=== PATIENT | female | born 2000 | race Caucasian/White ===

== ENCOUNTER → 2023-03-08 10:40 | Outpatient (BNVA) | payer OTHER, SELFPAY | PROVIDERS: PCP Family Medicine; Visit Provider Family Medicine | DX: R53.81 Other malaise (principal); R53.83 Other fatigue | CPT/HCPCS: 84439; 84443 ==

== ENCOUNTER → 2023-04-07 15:16 | Outpatient (BNVA) | payer OTHER, SELFPAY | PROVIDERS: PCP Family Medicine; Visit Provider Family Medicine | DX: Z01.419 Encounter for gynecological examination (general) (routine) without abnormal findings (principal) | CPT/HCPCS: 87624 ==

== ENCOUNTER → 2023-05-24 12:48 | Outpatient (BNVA) | payer OTHER, SELFPAY | PROVIDERS: PCP Family Medicine; Visit Provider Family Medicine | DX: R30.0 Dysuria (principal); E03.9 Hypothyroidism, unspecified; Z34.90 Encounter for supervision of normal pregnancy, unspecified, unspecified trimester; Z51.81 Encounter for therapeutic drug level monitoring | CPT/HCPCS: 80053; 81000; 81025; 84144; 84439; 84443; 84702; 85025; 86592; 86762; 86803; 86850; 86900; 87086; 87340; 87806 ==

== ENCOUNTER 2023-06-09 15:05 | Outpatient (CLI) | payer OTHER, SELFPAY ==
--- NOTE | 2023-06-09 15:15 | US_ITS ---
WS: [id number] EARLY OBSTETRICAL ULTRASOUND (<14 WEEKS). HISTORY: Dating US COMPARISON: None available. Single intrauterine gestational sac is identified. Cardiac activity at 171 BPM. [place]-rump length cecy sures 2.5 cm which corresponds to a gestation of 9w1d. Normal-appearing yolk sac and amnion demonstra mary. No subchorionic hemorrhage. No free fluid. Corpus luteal cyst LEFT ovary measures 1.1 x 1.3 x 1.5 cm. Both ovaries are identified and normal siz e. US/US OB <= 14 weeks fetus [id number] IMPRESSION: 1. Single intrauterine gestation of 9 weeks 1 day with an EDC of 01/11/2024. 2. Normal cardiac activity.
== END 2023-06-09 15:06 | disposition home or self-care (01) ==
PROVIDERS: PCP Family Medicine; Visit Provider Family Medicine
DX: Z34.00 Encounter for supervision of normal first pregnancy, unspecified trimester (principal)
CPT/HCPCS: 76801

== ENCOUNTER → 2023-06-21 15:28 | Outpatient (BNVA) | payer OTHER, SELFPAY | PROVIDERS: PCP Family Medicine; Visit Provider Family Medicine | DX: Z34.00 Encounter for supervision of normal first pregnancy, unspecified trimester (principal) | CPT/HCPCS: 80307; 87491; 87591; 87661 ==

== ENCOUNTER 2023-08-16 14:30 | Emergency (ER) | payer OTHER, SELFPAY ==
[2023-08-16 14:32] VITALS: BP 132/78; PULSE 99; RESP 16; TEMP 37; O2SAT 100; BMI 28.3
--- NOTE | 2023-08-16 14:50 | ED_ITS ---
HPI - Abdominal Pain General: Chief Complaint: Abdominal Pain Stated Complaint: low abd pain 19 weeks preg Time Seen by Provider: 08/16/23 14:35 Source: patient Mode of arrival: ambulatory History of Present Illness: 23-year-old female G1, P0 presents at approximately 19 weeks gestation. She has some lower abdominal cramping still little bit of green vaginal discharge. No vaginal bleeding mild dysuria. No complications of to this point. Onset (ago): hour(s) Pain Consistency: intermittent Location: Periumbilical Severity: mild Quality: cramping Radiation: none Exacerbating factors: nothing Relieving factors: nothing Associated Symptoms: Reports GI cramping and dysuria; Denies constipation, diarrhea, hematochezia, hematuria, loose stools, nausea and poor appetite Review of Systems GI: Reports: GI cramping; Denies: nausea, diarrhea, constipation or hematochezia : Reports: dysuria; Denies: hematuria PFSH ED PFSH: Medical History Migraine headache Surgical History Hx of tonsillectomy End of 6th grade - Adenoids too Family History Mother Family history of thyroid problem Social History Smoking and tobacco status: never smoked Alcohol intake: current Alcohol intake frequency: holidays/special occasions only Substance/Drug Use: never Current occupation: Works at [employer] Physical Exam Const: COMMON NORMALS: no acute distress GENERAL APPEARANCE: cooperative and comfortable ORIENTATION/CONSCIOUSNESS: Yes awake, Yes oriented to person, Yes oriented to place and Yes oriented to time HENMT: COMMON NORMALS: normocephalic, atraumatic and hearing grossly normal bilaterally HEAD & SCALP: normocephalic and atraumatic Resp: COMMON NORMALS: normal respiratory effort, No retractions, No use of accessory muscles and clear to auscultation bilaterally AUSCULTATION: clear to auscultation bilaterally Cardio: COMMON NORMALS: regular rate, regular rhythm and No murmurs present (Cardio) RATE: regular rate RHYTHM: regular rhythm GI: COMMON NORMALS: Soft to palpation and No hepatosplenomegaly present AUSCULTATION: Yes normoactive bowel sounds PALPATION: Yes Soft to palpation, No Tenderness to palpation present (GI), No Guarding due to palpation present (GI) and Yes No hepatosplenomegaly present Extremity: COMMON NORMALS: normal to inspection, capillary refill normal, no clubbing, cyanosis or edema, no calf tenderness and no pedal edema Neuro: SENSORIUM/ORIENTATION: Yes oriented to person, Yes oriented to place and Yes oriented to time Skin: COMMON NORMALS: no rashes or lesions noted GENERAL SKIN EXAM: no r ashes or lesions noted Course Vital Signs: Vital signs: Vital Signs Temperature 98.6 F 08/16/23 16:58 Pulse Rate 94 08/16/23 16:58 Respiratory Rate 16 08/16/23 16:58 Blood Pressure 111/73 08/16/23 16:58 Pulse Oximetry 99 08/16/23 16:58 Oxygen Delivery Me thod Room Air 08/16/23 15:07 MDM - Abdominal Pain Medical Decision Making heart tones topples positive. Pelvic exam was completed by IZABELA Cleaning. Wet prep showed yeast. Will discharge home with Diflucan follow-up with ELIGIBILITY EXAMINER Medical Records I reviewed the patient's medical records. Lab Data I reviewed the patient's lab results. 08/16/23 15:36 08/16/23 15:36 Labs/Radiology: Laboratory Results WBC 10.17 10^3/uL (3.29-11.43) 08/16/23 15:36 RBC 4.45 10^6/uL (3.85-5.65) 08/16/23 15:36 Hgb 13.80 g/dL (11.27-16.99) 08/16/23 15:36 Hct 38.7 % (36-47) 08/16/23 15:36 MCV 87.0 fl (85-98) 08/16/23 15:36 MCH 31.0 pg (27-33) 08/16/23 15:36 MCHC 35.7 g/dL (30-55) 08/16/23 15:36 RDW 13.3 % (12.1-15.1) 08/16/23 15:36 Plt Count 184 10^3/cmm (157-399) 08/16/23 15:36 MPV 9.8 fL (7.4-10.4) 08/16/23 15:36 Neut % (Auto) 71.9 % 08/16/23 15:36 Lymph % (Auto) 19.4 % 08/16/23 15:36 [place] % (Auto) 6.8 % 08/16/23 15:36 Eos % (Auto) 0.7 % 08/16/23 15:36 Baso % (Auto) 0.3 % 08/16/23 15:36 Neut # (Auto) 7.32 10^3/uL (1.8-7.7) 08/16/23 15:36 Lymph # (Auto) 2.0 10^3/uL (0.8-4.8) 08/16/23 15:36 [place] # (Auto) 0.7 10^3/uL (0.2-0.9) 08/16/23 15:36 Eos # (Auto) 0.1 10^3/uL (0.0-0.8) 08/16/23 15:36 Baso # (Auto) 0.0 10^3/uL (0.0-0.1) 08/16/23 15:36 Nucleated RBC % (auto) 0 % 08/16/23 15:36 Nucleated RBCs # 0.0 /100WBC 08/16/23 15:36 Sodium 136 mmol/L (136-145) 08/16/23 15:36 Potassium 3.5 mmol/L (3.5-5.1) 08/16/23 15:36 Chloride 103 mmol/L (98-107) 08/16/23 15:36 Carbon Dioxide 22 mmol/L (22-29) 08/16/23 15:36 Anion Gap 14.5 (5-19) 08/16/23 15:36 BUN 5 mg/dL (6-20) L 08/16/23 15:36 Creatinine 0.2 mg/dL (0.5-0.9) L 08/16/23 15:36 GFR Calculation 444.2 mL/min (90-130) H 08/16/23 15:36 Glucose 90 mg/dL (65-115) 08/16/23 15:36 Calculated Osmolality 279 mOsm/kg (285-295) L 08/16/23 15:36 Calcium 8.9 mg/dL (8.5-10.5) 08/16/23 15:36 Urine Color Light yellow (Yellow) 08/16/23 15:06 Urine Appearance Clear (CLEAR) 08/16/23 15:06 Urine pH 8 (5-7) H 08/16/23 15:06 Ur Specific Spray 1.015 (1.005-1.030) 08/16/23 15:06 Urine Protein Neg (Negative) 08/16/23 15:06 Urine Glucose (UA) Norm (Normal) 08/16/23 15:06 Urine Ketones Negative (Negative) 08/16/23 15:06 Urine Blood Neg (Negative) 08/16/23 15:06 Urine Nitrate Negative (Negative) 08/16/23 15:06 Urine Bilirubin Neg (Negative) 08/16/23 15:06 Prot Sulfosalicylic Acd Negative (Negative) 08/16/23 15:06 Urine Urobilinogen Norm mg/dL (Negative) 08/16/23 15:06 Ur Leukocyte Esterase Negative (Negative) 08/16/23 15:06 C.trachomatis RNA (TMA) Cancelled 08/16/23 15:16 C.trachomatis RNA (TMA) Not detected (NOT DETECTED) 08/16/23 15:16 Chlamydia/GC Comment Cancelled 08/16/23 15:16 Chlamydia/GC Comment See note 08/16/23 15:16 N.gonorrhoeae RNA (TMA) Cancelled 08/16/23 15:16 N.gonorrhoeae RNA (TMA) Not detected (NOT DETECTED) 08/16/23 15:16 T. vaginalis Amp RNA Cancelled 08/16/23 15:16 T. vaginalis Amp RNA Not detected (NOT DETECTED) 08/16/23 15:16 No radiology studies performed this visit Discharge Plan Discharge Patient Disposition: Home Clinical Impression: Vaginal yeast infection, state, incidental Condition: Stable Prescriptions: New Diflucan 150 mg tablet 150 mg PO Q3D Qty: 2 0RF No Action Multivitamins 28 mg iron- 800 mcg Tablet 1 tab PO QAM Discharge Orders: Discharge ED (Routine); Ordered 08/16/23 Ordered By: Guillermo Zaldivar Referrals: Dusty Disla MD [Primary Care Provider] - Discharge Diet: Usual diet Discharge Activity: Increase activity as tolerated Patient Instructions: Opioid Safety, Pain Management Activity Restrictions/Additional Instructions: You were seen today for vaginal discharge and pelvic cramping. heart tones are normal and no pelvic exam there was signs of a yeast infection. You are given excretion per Diflucan 1 tablet immediately and 1 in 2 days. Follow- up with your primary OB doctor as previously scheduled. Coding Level of Care Code ED Assignment Desk Assistant for Jose Weiner
[2023-08-16 15:07] VITALS: BP 111/73; PULSE 94; RESP 16; O2SAT 99
[2023-08-16 15:48] LABS: Basophils % 0.3 %; Eosinophils # 0.1 10^3/uL (0.0-0.8); Eosinophils % 0.7 %; Hematocrit 38.7 % (36-47); Lymphocytes % 19.4 %; Mean Corpuscular HGB Conc 35.7 g/dL (30-55); Mean Platelet Volume 9.8 fL (7.4-10.4); Monocytes # 0.7 10^3/uL (0.2-0.9); Monocytes % 6.8 %; Neutrophils # 7.32 10^3/uL (1.8-7.7); Neutrophils % 71.9 %; Nucleated Red Blood Cells % 0 %; Platelet Count 184 10^3/cmm (157-399); Red Blood Count 4.45 10^6/uL (3.85-5.65); Red Cell Distribution Width 13.3 % (12.1-15.1); White Blood Count 10.17 10^3/uL (3.29-11.43)
[2023-08-16 16:00] LABS: Add Urine Microscopic? NO; Charge for UA Resulting for Rev
[2023-08-16 16:08] LABS: Anion Gap 14.5 (5-19); Blood Urea Nitrogen 5 mg/dL (6-20); Calcium 8.9 mg/dL (8.5-10.5); Carbon Dioxide 22 mmol/L (22-29); Chloride 103 mmol/L (98-107); Glomerular Filtration Rate 444.2 mL/min (90-130); Glucose 90 mg/dL (65-115); Osmolality Calculated 279 mOsm/kg (285-295); Potassium 3.5 mmol/L (3.5-5.1); Sodium 136 mmol/L (136-145)
[2023-08-16 16:38] LABS: Bilirubin Urine Neg (Negative); Blood Urine Neg (Negative); Glucose Urine UA Norm (Normal); Ketones Urine Negative (Negative); Leukocyte Esterase Urine Negative (Negative); Nitrate Urine Negative (Negative); Protein Urine Neg (Negative); Specific Gravity, Urine 1.015 (1.005-1.030); Sulfosalicylic Acid Urine Negative (Negative); Urine Appearance Clear (CLEAR); Urine Color Light yellow (Yellow); Urobilinogen Urine Norm (Negative); pH Urine 8 (5-7)
[2023-08-16 16:58] VITALS: BP 111/73; PULSE 94; RESP 16; TEMP 37; O2SAT 99
[2023-08-18 00:29] LABS: Chlamydia Trachomatis RNA TMA NOT DETECTED (NOT DETECTED); Neisseria Gonorrhoeae RNA, TMA NOT DETECTED (NOT DETECTED); Trichomonas Vaginalis RNA NOT DETECTED (NOT DETECTED)
== END 2023-08-16 16:59 | disposition home or self-care (01) ==
PROVIDERS: Emergency Provider Family Medicine; PCP Family Medicine
DX: O98.812 Other maternal infectious and parasitic diseases complicating pregnancy, second trimester (principal); B37.31 Acute candidiasis of vulva and vagina; Z3A.19 19 weeks gestation of pregnancy
CPT/HCPCS: 36415; 51701; 80048; 81003; 85025; 87210; 87491; 87591; 99283

== ENCOUNTER 2023-08-24 15:20 | Outpatient (CLI) | payer OTHER, SELFPAY ==
--- NOTE | 2023-08-24 15:15 | US_ITS ---
WS: [id number] OBSTETRICAL ULTRASOUND COMPLETE Initial study performed on 08/24/2023. Repeat imaging on 08/25/2023. HISTORY: Anatomy US - 9-10 weeks from now COMPARISON: 06/09/2023 Single intrauterine gestation in variable presentation. Cervix is Closed and normal length. Cervical length is 3.2 cm. Normal amount of amniotic fluid surrounds the fetus. Placenta: Anterior, no previa or abruption. Placenta grade 0 Heart: 138 BPM. Four chambers are identified. Outflow tracts are better seen on the second day imagin g exam. The outflow tracts appear appropriate. The valve plane is normal. Anatomy: Intracranial structures and spine are normal. kidneys, stomach and urinary bladd er are unremarkable. Abdominal wall, three-vessel cord and cord insertion site are normal. 4 extremities are present. profile: Unremarkable. Gender: Male. measurements: BPD = 4.7 cm = 20w2d; HC = 18.0 cm = 20w3d; AC = 15.9 cm = 21w0d; FL = 3.3 cm = 20w3d; EFW: 369 g. Not available. Biometry is internally concordant. AGA by ultrasound: 20w4d ESTEFANI by ultrasound: 01/07/2024 IMPRESSION: 1. Single intrauterine gestation of 20w4d with an ESTEFANI of 01/07/2024. Appropriate growth since the fi rst trimester ultrasound. 2. Unremarkable screening survey of anatomy. Better visualization of the heart on the fo llow-up imaging study. No anatomic abnormalities are identified.
== END 2023-08-24 15:21 | disposition home or self-care (01) ==
LOC: RAD 15:23
PROVIDERS: PCP Family Medicine; Visit Provider Family Medicine
DX: Z34.02 Encounter for supervision of normal first pregnancy, second trimester (principal)
CPT/HCPCS: 76805

== ENCOUNTER → 2023-09-20 10:34 | Outpatient (BNVA) | payer OTHER, SELFPAY | PROVIDERS: PCP Family Medicine; Visit Provider Family Medicine | DX: Z34.00 Encounter for supervision of normal first pregnancy, unspecified trimester (principal) | CPT/HCPCS: 82950 ==

== ENCOUNTER → 2023-11-15 16:34 | Outpatient (BNVA) | payer OTHER, SELFPAY | PROVIDERS: PCP Family Medicine; Visit Provider Family Medicine | DX: Z51.81 Encounter for therapeutic drug level monitoring (principal) | CPT/HCPCS: 85025 ==

== ENCOUNTER → 2023-12-13 16:09 | Outpatient (BNVA) | payer OTHER, SELFPAY | PROVIDERS: PCP Family Medicine; Visit Provider Family Medicine | DX: Z34.90 Encounter for supervision of normal pregnancy, unspecified, unspecified trimester (principal) | CPT/HCPCS: 87081 ==

== ENCOUNTER 2023-12-14 12:59 | Outpatient (CLI) | payer OTHER, SELFPAY ==
--- NOTE | 2023-12-14 13:15 | US_ITS ---
WS: [id number] ULTRASOUND OB FOCUSED HISTORY: head position - Next 1-2 days please COMPARISON: 08/24/2023 Single intrauterine gestation is present. Fetus in vertex position. Cervix is closed at 3.7 cm. heart rate at 131 BPM. Amniotic fluid index 8.3 cm. Placenta is anterior and grade 1. IMPRESSION: Vertex position of the fetus.
== END 2023-12-14 13:00 | disposition home or self-care (01) ==
LOC: RAD 13:00
PROVIDERS: PCP Family Medicine; Visit Provider Family Medicine
DX: O32.8XX0 Maternal care for other malpresentation of fetus, not applicable or unspecified (principal); Z3A.00 Weeks of gestation of pregnancy not specified
CPT/HCPCS: 76815

== ENCOUNTER 2024-01-12 04:17 | Inpatient (IN) | payer OTHER, SELFPAY ==
[2024-01-12] VITALS (126 sets, daily range): BP systolic 77–232; BP diastolic 35–172; PULSE 71–206; RESP 15–18; TEMP 30.6–36.6; O2SAT 85–100; BMI 29.9
[2024-01-12 04:03] LABS: Nitrazine Paper, PH Positive
[2024-01-12 05:26] LABS: Basophils % 0.3 %; Eosinophils # 0.1 10^3/uL (0.0-0.8); Eosinophils % 0.7 %; Hematocrit 44.5 % (36-47); Lymphocytes # 2.6 10^3/uL (0.8-4.8); Lymphocytes % 21.9 %; Mean Corpuscular HGB Conc 34.6 g/dL (30-55); Mean Corpuscular Hemoglobin 30.9 pg (27-33); Mean Corpuscular Volume 89.4 fl (85-98); Mean Platelet Volume 11.7 fL (7.4-10.4); Monocytes # 0.8 10^3/uL (0.2-0.9); Monocytes % 6.9 %; Neutrophils # 8.05 10^3/uL (1.8-7.7); Neutrophils % 69.1 %; Nucleated Red Blood Cells % 0 %; Platelet Count 154 10^3/cmm (157-399); Red Blood Count 4.98 10^6/uL (3.85-5.65); Red Cell Distribution Width 12.5 % (12.1-15.1); White Blood Count 11.67 10^3/uL (3.29-11.43)
[2024-01-12 06:32] LABS: Slide Review Slide Review Perform
[2024-01-12] MEDS: ondansetron 2 mg/ML SDV 2 mL 4 MG IVP ×3 (08:37→20:07)
[2024-01-12] MEDS: fentaNYL 50 mcg/mL INJ 2mL IVP ×2 (11:23→12:52)
[2024-01-12] MEDS: dextrose 5%-lactated ringers 1,000 ML 125 ML IV ×2 (12:22→23:36)
[2024-01-12] MEDS: oxytocin 30 UNIT/500 ML BAG IV (13:00)
[2024-01-12] MEDS: lactated ringers 1,000 ML 999 ML IV ×2 (15:19→16:24)
--- NOTE | 2024-01-12 16:14 | P.ANESUD_ITS ---
Pre-Anesthetic Update Pre-Anesthetic Assessment: Date of Surgery/Procedure: 01/12/24 Preop Roseanne gnosis: labor pain Proposed Procedure: epidural Any changes to Pre-Anesthetic Assessment?: No Labs Last 48hrs: Short CBC 01/12/24 Range/Units 05:16 WBC 11.67 H (3.29-11.43) 10^ 3/uL Hgb 15.40 (11.27-16.99) g/ dL Hct 44.5 (36-47) % MCV 89.4 (85-98) fl Plt Count 154 L (157-399) 10^3/c mm Neut % (Auto) 69.1 % Neut # (Auto) 8.05 H (1.8-7.7) 10^3/u L Blood Bank 01/12/24 05:16 Blood Type B Positive Rho(D) Type Rh positive Antibody Screen Negative Vitals: Temperature 97.2 F L 01/12/24 13:59 Pulse Rate 90 01/12/24 16:03 Pulse Rhythm Regular 01/12/24 04:19 Pulse Strength 3+ Normal 01/12/24 04:19 Respiratory Rate 16 01/12/24 12:52 Respiratory Effort Spontaneous, Non- Labored, Easy 01/12/24 12:52 Respiratory Depth Normal 01/12/24 12:52 Respiratory Patter n Normal 01/12/24 11:23 Blood Pressure 103/56 01/12/24 16:03 Pulse Oximetry 97 01/12/24 13:48 Oxygen Delivery Me thod Room Air 01/12/24 04:19 Exam: Pre-Anes Outpt Exam: alert, oriented x 3, clear to auscultation bilaterally and regular rate & rhythm Cardiac Studies: No Data to Display
[2024-01-12] MEDS: ROPivacaine syringe 100 MG/50 ML SYRINGE 11 MG EPIDURAL (16:33)
--- NOTE | 2024-01-12 16:41 | ANES.PROC ---
Anesthesia Procedures Procedure/Date: 01/12/24 epidural Procedure Narrative: epidural complete, bolus given, epidural pump initiated with ELECTRO MECHANICAL ENGINEER education given, vitals taken during procedure using OBIX system and satisfactory throughout, patient admits to decrease pain, report of procedure to OB RN Epidural: Time Out Performed: Yes Consents Signed: Procedure Consent Consent: requested by attending/covering physician, from patient, risks and benefits reviewed and patient agrees to proceed Lumbar Level: L3-L4 Epidural position: sitting Epidural procedure: sterile prep of area, 1% lidocaine to numb the area (3 mL), 18 g needle, negative for paresthesia passed, neg for paresthesia, test dose given, 1.5% xylocaine 1:200k epi (5 mL), 0.2% Ropivacaine bolus ml (5 mL), placed PCEA, no systemic response, sterile dressing applied, L.U.D. no apparent complications and 0.2% Ropiavacaine @ mls/hr (13 mL/hr)
--- NOTE | 2024-01-12 18:48 | P.HP_ITS ---
Providers/Chief Complaint 2 Admitting Physician: Dusty Disla MD Primary Care Provider: Dusty Disla MD Chief Complaint: Possible ROM History of Present Illness Time of service: 8:20 AM on 01/12/2024 Adrianne Hadley is a 23 year old @ 40.5 weeks by LMP c/w 9 wk US. complicated by migraines. The patient presented to labor and delivery triage due to spontaneous rupture membranes. The patient woke up approximately 3 AM and noticed a large gush of fluid when going to the bathroom. The fluid continued to come out and so she presented to triage. She was noted to be grossly ruptured and had a positive nitrazine test. The patient has been ramu more over the prior few days. The patient denies any fevers, chest pain, cough, nausea, vomiting, diarrhea, constipation, dysuria, vaginal bleeding. Medications/Allergies Home Medications Medication Instructions Recorded Confirmed Last Taken Type vit no.95-ferrous 1 tab PO QAM 08/16/23 01/12/24 08/16/23 History fumarate 28 mg-folic acid 800 mcg tablet ( Multivitamins) Allergies Allergy/AdvReac Type Severity Reaction Status Date / Time No Known Allergies Allergy Verified 08/16/23 14:44 PFSH Acute 2 PFSH: Medical History Migraine headache Surgical History Hx of tonsillectomy End of 6th grade - Adenoids too Family History Mother Family history of thyroid problem Social History Smoking and tobacco/nicotine status: never used tobacco/nicotine Alcohol intake: current Alcohol intake frequency: holidays/special occasions only Substance/Drug Use: never Current occupation: Works at [employer] Female Reproductive History: : 1 Vitals/I&O/Wt Last Vital Signs Temp 96.6 F L 01/12/24 17:15 Pulse 114 H 01/12/24 18:31 Resp 16 01/12/24 12:52 BP 97/57 01/12/24 18:31 Pulse Ox 100 01/12/24 16:50 O2 Del Method Room Air 01/12/24 04:19 01/12/24 01/12/24 01/12/24 06:59 14:59 22:59 Intake Total 2.0 / 2.0 1732.317 / 1734.317 Balance 2.0 / 2.0 1732.317 / 1734.317 Weight last 48 hrs Weight 148 lb Physical Exam 2 Narrative: General: Alert and oriented x3 Eyes: Pupils equal round and reactive to light and accommodation Mouth: Mucous membranes moist, pharynx non-erythematous Cardiac: Regular rate and rhythm without murmurs Lungs: Clear to auscultation bilaterally without wheezes, crackles or rhonchi Abdomen: Soft, non-tender, fundus consistent with gestational age Extremities: Trace edema in the bilateral lower extremities Urinary Catheter Management: Luu: Cath Placed During This Visit: yes Urinary Catheter Date of Insertion: 01/12/24 Urinary Catheter Time of Insertion: 17:05 Data 01/12/24 05:16 A&P Assessment and plan (1) Supervision of normal intrauterine in primigravida: The patient presented to labor and delivery triage and has had spontaneous rupture membranes. She is ramu every 2 minutes and we will allow her to see if this will change her cervix on its own. If her contractions spaced out, we will plan to add IV Pitocin. She may receive a laboring epidural when she gets to be 3 cm or beyond. She may have IV medications prior to this if she would prefer. The patient is GBS negative. heart tones are category 1. All questions were answered. Continue with routine intrapartum management. Attestations 2 Medical Necessity Statement*: The patient will be here for greater than 2 midnights due to routine intrapartum and management of labor and delivery. Coding Level of Care Code Acute Code for Chg Fwd Diagnoses Supervision of normal intrauterine in primigravida Z34.00
[2024-01-12] MEDS: ePHEDrine 50 mg/mL Inj 10 MG IVP ×2 (20:09→20:27)
[2024-01-12] MEDS: oxytocin 30 UNIT/500 ML BAG 300 UNIT IV (20:10)
[2024-01-12] MEDS: miSOPROStol 200 mcg Tablet 800 MCG PR (20:19)
--- NOTE | 2024-01-12 20:48 | ECG_ITS ---
[facility] Test Date: 2024-01-12 Pat Name: Adrianne Hadley Department: Room: OB4 Gender: Female Survey And Mapping Technician: : 2000 Requested By: Dusty Beltran Order Number: [id number] Alba MD: Aidee Yee M.D. Measurements Intervals [place] Rate: 103 P: 54 AR: 92 QRS: 104 QRSD: 88 T: 62 QT: 331 QTc: 435 Interpretive Statements SINUS TACHYCARDIA WITH SHORT AR INTERVAL RIGHT AXIS DEVIATION [QRS AXIS > 100] Nonspecific ST changes POSSIBLE RIGHT VENTRICULAR CONDUCTION DELAY [RSR (QR) IN V1/V2] No previous ECG available for comparison Electronically Signed On 01-13-2024 17:54:09 CNC PROGRAMMER by Aidee Yee M.D. [id number]
[2024-01-12 21:12] LABS: Glucose Point of Care 78 mg/dL (70-110)
[2024-01-12 21:17] LABS: Basophils % 0.2 %; Hematocrit 37.7 % (36-47); Lymphocytes % 3.9 %; Mean Corpuscular HGB Conc 33.7 g/dL (30-55); Mean Corpuscular Hemoglobin 30.8 pg (27-33); Mean Corpuscular Volume 91.5 fl (85-98); Mean Platelet Volume 10.9 fL (7.4-10.4); Monocytes # 1.1 10^3/uL (0.2-0.9); Monocytes % 4.3 %; Neutrophils # 22.36 10^3/uL (1.8-7.7); Neutrophils % 90.9 %; Nucleated Red Blood Cells % 0 %; Platelet Count 186 10^3/cmm (157-399); Red Blood Count 4.12 10^6/uL (3.85-5.65); Red Cell Distribution Width 12.4 % (12.1-15.1); White Blood Count 24.62 10^3/uL (3.29-11.43)
[2024-01-12 21:23] LABS: INR 1.07 (0.8-1.2)
[2024-01-12 21:24] LABS: Fibrinogen 353 mg/dL (174-498)
[2024-01-12 21:27] LABS: Alanine Aminotransferase 12 U/L (0-33); Albumin Level 2.8 g/dL (3.5-5.2); Alkaline Phosphatase 128 U/L (35-105); Anion Gap 12.8 (5-19); Aspartate Amino Transferase 15 U/L (0-32); Blood Urea Nitrogen 5 mg/dL (6-20); Carbon Dioxide 20 mmol/L (22-29); Chloride 106 mmol/L (98-107); Creatinine Clr Calc Pharmacy 233.7965; Globulin 1.8 g/dL (1.3-4.6); Glomerular Filtration Rate 199.6 mL/min (90-130); Glucose 86 mg/dL (65-115); Osmolality Calculated 277 mOsm/kg (285-295); Potassium 3.8 mmol/L (3.5-5.1); Sodium 135 mmol/L (136-145); Total Protein 4.6 g/dL (6.6-8.7)
[2024-01-12 21:33] LABS: D Dimer 12.85 ug/mLFEU (0-0.59)
--- NOTE | 2024-01-12 21:47 | PM.DELIVERY ---
Delivery Note: Date of delivery: January 12, 2024 Pre-delivery diagnoses: 1. Intrauterine at 40.5 weeks gestation 2. History of migraines 3. Spontaneous rupture membranes at 3 AM on 01/12/2024 Post-delivery diagnoses: 1. Intrauterine status post vacuum-assisted vaginal delivery at 40.5 weeks gestation 2. History of migraines 3. Prolonged hypotensive episode after delivery 4. Elevated D-dimer Procedure: Vacuum-assisted vaginal delivery Episiotomy Delivering Physician: Dusty Disla MD Estimated blood loss (mL): 400 Findings: 1. Healthy infant male weighing 6 pounds 12 ounces with Apgars of 4 and 8 2. Intact placenta with central umbilical cord insertion site Pre-Delivery Course: The patient presented to labor and delivery triage due to spontaneous rupture membranes. The patient woke up approximately 3 AM on 01/12/2024 and noticed a large gush of fluid when going to the bathroom. The fluid continued to come out and so she presented to triage. She was noted to be grossly ruptured and had a positive nitrazine test. The patient has been ramu more over the prior few days. The patient denied any fevers, chest pain, cough, nausea, vomiting, diarrhea, constipation, dysuria, vaginal bleeding. The patient was making good change on her own and got to approximately 2 cm dilation and her contractions started to space out. IV Pitocin was started at 2 units and she got up to 5 units and then was titrated back downward as her contractions picked up again. The patient made steady change. She received a laboring epidural at approximately 1440. She did well with this and had no complications afterwards. The epidural worked well for her and she had no hypotensive episodes afterwards. The patient continued to make steady change and was complete by 1822 on 01/12/2024. Delivery: The patient began pushing at 1854 on 01/12/2024. Shortly after she started pushing, heart tones dipped down and she had a prolonged deceleration in the 60's to 90's. This started to improve with stopping IV Pitocin and giving a fluid bolus with position changes, but then came back again. For this reason a vacuum was applied at 19:08 to help move the delivery on more quickly. With 3 pushes, the infant's head moved down from the +1 station to at which time the vacuum popped off. Since she was , the vacuum was not re-placed. The patient pushed well for a few more contractions, however she had tight vaginal tissue and was having a hard time pushing the through this. The 's heart tones began to stay in the 60s to 80s again and for this reason an episiotomy was done at 1922. Shortly afterwards the infant delivered in the OA position at 1925 on 01/12/2024. A nuchal cord x 1 was present but tight. It was not able to be reduced. For this reason the was delivered through the nuchal cord. The left shoulder was the anterior shoulder and it delivered with ease. The rest of the delivered with ease. The 's mouth and nose were bulb suctioned by myself and the infant had poor tone at the time of delivery. The 's cord was clamped and cut by myself and the was given to the nurses to evaluate more closely. Please see note for full details. Cord blood was obtained and the cord was then drained of blood. Traction was placed on umbilical cord and the placenta delivered without complication at 1928 on 01/12/2024. The placenta was noted to be intact with a central umbilical cord insertion site. The cervix was inspected and no lacerations were noted. The vaginal wall was inspected and a large second-degree tear was noted on the left posterior and posterolateral wall. The patient's epidural was giving adequate anesthesia, so 3-0 Vicryl was used to repair the laceration without need of lidocaine. This was repaired in a running fashion. The patient tolerated this well initially. A couple of minutes prior to me finishing suturing, the patient's blood pressure began to drop and she complained of a headache and weakness. She denied any chest pains or chest pressure. Her blood pressure was at 85/35 with a pulse of 127. For this reason the epidural was turned off and an IV fluid bolus was given and oxygen was placed. The patient's blood pressure continued to stay low and she was placed in Trendelenburg and a second IV line was placed. She was given a total of 2 L of LR bolused. Ephedrine was given x 2. Her bleeding was only mild to moderate, however because of her lower blood pressures, Cytotec 800mcg was given rectally at 2019 to help decrease her bleeding as much as possible. Labs were drawn and sent. We called down to the ICU to see if a bed was available and I called Dr. Delgado, the hospitalist at 8:44 PM to discuss the possibility of admission to the ICU to be placed on pressors. While I was on the phone with the physician, the patient's blood pressures began to improve and she began to become more alert. Because of this, her IV fluid bolus was decreased and oxygen was stopped. The patient currently has blood pressures in the 92/55 range with a pulse of 111 and oxygen of 98% on room air. She is afebrile. Labs are currently pending, however her D-dimer is elevated and she has signs of a right ventricular conduction delay on EKG. We will plan to get a CT for PE protocol to evaluate for pulmonary embolism. She currently does not meet criteria for an amniotic fluid embolus. Her symptoms do not seem to be consistent with blood loss as a cause either. Her estimated blood loss was 400 mL initially. I do not feel that this was due to her epidural as it had not caused issues previously and the dosing was not changed. The patient never complained of chest pains or chest tightness. She has been afebrile so this does not seem to be consistent with an infectious cause. We will continue to evaluate for possible underlying causes. I have discussed the case with the patient and her and they are currently in agreement with the current plan of care. The patient's was present throughout the entire process. Currently both the mother and are doing well. History History History 1 Term 1 0 Miscarriages/Ectopic 0 Living Children 1 Past Pregnancies Del. Date GA/Weeks Outcome Route Wt Inf Gender Labor Lgth Comp. Anesthesia Location 01/12/24 40 live - full term Opperative 6 lb 12 oz Male 16 hrs Other regional [facility] - [place] Delivery Date: 01/12/24 Last Updated by: Dusty Disla MD Hypotensive episode after delivery x 1 hr - Being evaluated A&P Assessment and plan (1) Vacuum-assisted vaginal delivery: (2) Hypotension: Coding Level of Care Code Acute Code for Chg Fwd Diagnoses Hypotension I95.9 Vacuum-assisted vaginal delivery Z37.9
--- NOTE | 2024-01-12 22:10 | CTR_ITS ---
PROCEDURE INFORMATION: Exam: CTA Chest With Contrast Exam date and time: 01/12/2024 10:40 PM Age: 23 years old Clinical indication: Tachypnea; Additional info: Hypotension after delivery, tachycardia, elevated d-dimer TECHNIQUE: Imaging protocol: Computed tomographic angiography of the chest with contrast. Exam focused on the arteries. 3D rendering (Not supervised by radiologist): MIP and/or 3D reconstructed images were created by the technologist. Radiation optimization: All CT scans at this facility use at least one of these dose optimization techniques: automated exposure control; mA and/or kV adjustment per patient size (includes targeted exams where dose is matched to clinical indication); or iterative reconstruction. Contrast material: OMNI 350; Contrast volume: 80 ml; Contrast route: INTRAVENOUS (IV); COMPARISON: No relevant prior studies available. RADIATION DOSE METRICS: Total DLP (mGy-cm): 384 FINDINGS: Pulmonary arteries: Normal. No pulmonary emboli. Aorta: Unremarkable. No aortic aneurysm. No aortic dissection. Lungs: Unremarkable. No consolidation. No masses. Pleural spaces: Unremarkable. No pneumothorax. No pleural effusion. Heart: Unremarkable. No cardiomegaly. No pericardial effusion. Lymph nodes: Unremarkable. No enlarged lymph nodes. Bones/joints: Unremarkable. No acute fracture. Soft tissues: Unremarkable. CT/CT angio chest PE protcl [id number] IMPRESSION: Negative for pulmonary embolus.
--- NOTE | 2024-01-12 22:20 | P.CONIM_ITS ---
Providers/Reason For Consult 2 Consulting Physician/Specialty*: Dr Disla Reason for Consult*: Hypotension Attending Physician: Dusty Disla MD Primary Care Provider: Dusty Disla MD History of Present Illness History of Present Illness 23-year-old lady status post diagnosis of vaginal delivery after spontaneous rupture membranes this morning, became hypotensive after delivery, blood pressures down as low as 70/30, received total 1.5 L of fluid, EBL possibly about 400 mL with delivery and episiotomy. Received a dose of Cytotec. Has history of migraines, not on any current home medications, did not receive any antihypertensives. Had fentanyl earlier prior to delivery, also had an epidural. She did have an episode of vomiting earlier today, denies recurrent vomiting or diarrhea. Denies chest pain or pressure. Denies shortness of breath. Some decreased responsiveness earlier, but with resuscitation she reports feeling better, has regained color. Now maintaining better blood pressures on her own. Review of Systems 2 Const: Denies: fever(s), chills, body aches or malaise ENMT: Denies: throat pain Card: Denies: chest pain, edema, pre-syncope or dyspnea on exertion Resp: Denies: dyspnea, productive cough, change in phlegm color or hemoptysis GI: Reports: vomiting; Denies: abdominal pain, nausea, diarrhea, constipation, hematochezia or melena : Denies: flank pain, urinary frequency or hematuria Musc: Denies: back pain, joint swelling or joint redness Skin/Breast: Denies: rash or new lesions Neuro: Denies: headache(s), dizziness or confusion Medications/Allergies Home Medications Medication Instructions Recorded Confirmed Last Taken Type vit no.95-ferrous 1 tab PO QAM 08/16/23 01/12/24 08/16/23 History fumarate 28 mg-folic acid 800 mcg tablet ( Multivitamins) Allergies Allergy/AdvReac Type Severity Reaction Status Date / Time No Known Allergies Allergy Verified 08/16/23 14:44 Current Medications Generic Name Dose Route Start Last Admin Trade Name Freq PRN Reason Stop Dose Admin Ephedrine Sulfate 10 mg 01/12/24 04:16 01/12/24 20:27 Ephedrine 50 Mg/Ml Inj IVP 10 mg Q3M PRN Administration hypotension as directed by Fentanyl 25 - 100 mcg 01/12/24 04:16 01/12/24 12:52 Fentanyl 50 Mcg/Ml Inj 2ml IVP 50 mcg Q1H PRN Administration SEVERE PAIN Dextrose/Lactated Ringer's 1,000 mls @ 125 mls/hr 01/12/24 04:30 01/12/24 15:19 Dextrose 5%-Lactated Ringers IV 0 mls/hr .Q8H JAJA Infusion Oxytocin 30 unit in 500 mls @ 1 mls/hr 01/12/24 12:15 01/12/24 18:30 Pitocin IV 0 milliunit/min .Q24H JAJA 0 mls/hr Titration Protocol 1 MILLIUNIT/MIN Lactated Ringer's 1,000 mls @ 999 mls/hr 01/12/24 15:11 01/12/24 19:30 Lactated Ringers IV Infused .Q1H1M PRN Infusion See label comments Ropivacaine 100 mg in 50 mls @ 10 mls/hr 01/12/24 15:15 01/12/24 16:33 Naropin Syringe EPIDURAL 11 mls/hr .Q5H JAJA Administration Ondansetron HCl 4 mg 01/12/24 04:16 01/12/24 20:07 Ondansetron 2 Mg/Ml Sdv 2 Ml IVP 4 mg Q4H PRN Administration NAUSEA AND VOMITING PFSH Acute 2 PFSH: Medical History Migraine headache Surgical History Hx of tonsillectomy End of 6th grade - Adenoids too Family History Mother Family history of thyroid problem Social History Smoking and tobacco/nicotine status: never used tobacco/nicotine Alcohol intake: current Alcohol intake frequency: holidays/special occasions only Substance/Drug Use: never Current occupation: Works at [employer] History: : 1 Vitals/I&O/Wt Last Vital Signs Temp 97.9 F 01/12/24 21:39 Pulse 108 H 01/12/24 22:14 Resp 16 02/29/24 12:52 BP 92/55 01/12/24 22:09 Pulse Ox 99 01/12/24 22:14 O2 Del Method Room Air 01/12/24 04:19 01/12/24 01/12/24 01/12/24 06:59 14:59 22:59 Intake Total 2.0 / 2.0 2387.817 / 2389.817 Output Total 250 / 250 Balance 2.0 / 2.0 2137.817 / 2139.817 Weight last 48 hrs Weight 67.132 kg Physical Exam 2 Narrative: Accompanied by her and attending provider at bedside. Const: COMMON NORMALS: patient oriented x3 and alert GENERAL APPEARANCE: c ooperative ORIENTATION/CONSCIOUSNESS: Yes awake HENMT: COMMON NORMALS: oropharynx normal Neck/C-Spine: COMMON NORMALS: no JVD Resp: COMMON NORMALS: normal respiratory effort and clear to auscultation bilaterally AUSCULTATION: clear to auscultation bilaterally Cardio: COMMON NORMALS: no JVD, regular rhythm, S1 normal heart sound present, S2 normal heart sound present and No murmurs present (Cardio) RHYTHM: regular rhythm HEART SOUNDS: S1 normal heart sound present and S2 normal heart sound present GI: COMMON NORMALS: Normal to inspection, nondistended, normoactive bowel sounds present Extremity: COMMON NORMALS: no joint enlargement and no pedal edema Neuro: COMMON NORMALS: patient oriented x3 and moves all extremities S ENSORIUM/ORIENTATION: Yes alert Skin: COMMON NORMALS: no rashes or lesions noted GENERAL SKIN EXAM: no rashes or lesions noted Urinary Catheter Management: Luu: Cath Placed During This Visit: yes, but has since been removed by the nurse Reason for Continuing Indwelling Catheter: Decision to DC Catheter Urinary Catheter Date of Insertion: 01/12/24 Urinary Catheter Time of Insertion: 17:05 Date Urinary Catheter Removed: 01/12/24 Time Urinary Catheter Discontinued: 18:50 Data 01/12/24 21:02 01/12/24 21:02 A&P Assessment and plan (1) Hypotension: Hypotensive at the end of delivery, blood pressure down as low as 70/30, although so far has responded to resuscitation. Reviewed vitals, CBC, CMP, baseline troponin, EKG, FP/OB note, discussed with attending provider. Initially intention to move to intensive care unit, however, as so far she is doing better on discussion with her attending and her and her at bedside for now transfer request deferred but discussed we are available with low threshold to transfer in case of any further deterioration or concern. Possibly multifactorial hypotension combination of some hypovolemic shock after vomiting, limited oral intake, acute blood loss EBL about 400 after delivery and episiotomy, possibly contribution of medication, possibly epidural, although was not hypotensive initially, did receive fentanyl but it was earlier as well. Other possibilities of hypotension considered, she is not in respiratory distress, no chest pain or pressure, amniotic fluid embolism considered, possibly less likely, however, monitor condition, supportive management in case needed. DIC profile has been requested. Other considerations, troponin EKG series were requested. Due to misoprostol, but again no chest pain or pressure, EKG on my interpretation was sinus tachycardia, nonspecific T wave abnormality, no obvious signs of [place]. Additionally per discussion with attending placenta was examined as well, no signs to suggest retained products, other considerations, uterine rupture, less likely at current time. D-dimer is noted abnormal 12.85, agree with CT angiogram chest to assess for possibility of VTE, will also request for lower extremity duplex. Reassess kidney function risk of kidney injury. May be at risk of injury from transient hypotension. Consideration given to possibility of infection/septic shock as well, as per discussion considered less likely at this time, do not have suggestive by presentation and symptoms. Likelihood of septic shock at this time low, but will pressure for additional assessment and empiric treatment. Did have vomiting earlier today around the time of delivery follow-up chest CT for any signs of aspiration pneumonitis/pneumonia although respiratory condition, lung exam oxygenation not suggestive. Will obtain acute abdominal series. UA. (2) Vacuum-assisted vaginal delivery: Plan History of migraine headaches Diagnoses Hypotension I95.9 Vacuum-assisted vaginal delivery Z37.9
[2024-01-12 22:24] LABS: Troponin(5th) Baseline 12 ng/L (0-10)
[2024-01-12] MEDS: iohexol 350 mg/mL 500 mL Btl (per mL) IV (22:53)
--- NOTE | 2024-01-12 23:47 | XRR_ITS ---
PROCEDURE INFORMATION: Exam: XR Abdomen Exam date and time: 01/13/2024 12:16 AM Age: 23 years old Clinical indication: Vomiting; Additional info: Possible clot TECHNIQUE: Imaging protocol: Radiologic exam of the abdomen. Views: Frontal supine view of the abdomen. 1 View. COMPARISON: CT angio chest PE protcl [id number] 01/12/2024 10:40 PM FINDINGS: Gastrointestinal tract: Normal. No bowel dilation. Organs: Contrast in the renal collecting systems, ureters and urinary bladder. Bones/joints: Unremarkable. XR/XR abdomen 1V* [id number] IMPRESSION: 1. Negative for bowel dilation to indicate obstruction. 2. Contrast in the renal collecting systems, ureters and urinary bladder.
[2024-01-12 23:51] LABS: Reflex FDPQ test REFLEX FDP QUEST TES
[2024-01-13] VITALS (11 sets, daily range): BP systolic 88–109; BP diastolic 51–70; PULSE 80–112; RESP 15–18; TEMP 36.8–37.4
--- NOTE | 2024-01-13 00:47 | PC.NURSE ---
ekg done due to high heart rate and low blood pressure and post delivery complications. see report for ekg details.
[2024-01-13 00:48] LABS: INR 1.11 (0.8-1.2); Partial Thromboplastin Time 29.7 SECONDS (23.9-36.7)
[2024-01-13 00:49] LABS: Fibrinogen 343 mg/dL (174-498)
[2024-01-13 01:05] LABS: D Dimer >= 20.00 ug/mLFEU (0-0.59)
--- NOTE | 2024-01-13 02:33 | PC.NURSE ---
after patient delivered, she was hypotensive and tachycardic with headache, dizziness, and nausea. patient stated her head hurt and was nauseous. patient also had difficulty keeping eyes open. dr juan was still at bedside. orders were received to turn epidural off at this point. at 2002, patient was still hypotensive and tachycardic so verbal orders were received to put on oxygen and start bolusing fluids. patient was then put in trendelenburg. patient was not responding to resuscitative measures by 2008 so we administered one dose of ephedrine. this dose helped raise patient's blood pressure temporarily. at 2018, patient was hypotensive and tachycardic again so 800 mcg was administered due to moderate bleeding during fundal assessment for bleeding prevention. at 2026 patient was still tachycardic and hypotensive, so a second dose of ephedrine was given. orders received at 2031 to draw cbc, cmp, d dimer, fibrinogen, prothrombin,,troponin, blood glucose, and dic profile. at this time, the house nurse arrived on the floor to assist. since we were unable to obtain specimens, ultrasound iv placement was ordered. iv ultrasound arrived on floor at 2054 and at that time, the hospitalist was consulted and possible transfer to icu was considered. after the hospitalist was consulted, patient became normotensive and pulse improved. patient received 2 bags of iv fluids (one warm) and a second bag of pitocin. orders were received to monitor blood pressure every 5 minutes and lay patient flat. as patient continued to improve, we could follow recovery guidelines and slowly start sitting the patient up in bed. a ct and ekg were ordered along with repeat labs to rule out possible pulmonary embolism.
--- NOTE | 2024-01-13 02:48 | ECG_ITS ---
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 Measurements Intervals [place] Rate: 82 P: 44 OH: 121 QRS: 84 QRSD: 102 T: 42 QT: 393 QTc: 460 Interpretive Statements SINUS RHYTHM INCOMPLETE RIGHT BUNDLE BRANCH BLOCK [90+ ms QRS DURATION, TERMINAL R IN V1/V2, 40+ ms S IN I/aVL/V4/V5/V6] NONSPECIFIC T-WAVE ABNORMALITY Compared to ECG 01/12/2024 22:06:29 T-wave abnormality now present ST (T wave) deviation no longer present Electronically Signed On 01-13-2024 18:02:15 [employer]UBE [employer]AN[employer] by Aidee Yee M.D. [id number]
[2024-01-13 04:46] LABS: Basophils % 0.2 %; Eosinophils % 0.1 %; Hematocrit 30.5 % (36-47); Lymphocytes # 1.6 10^3/uL (0.8-4.8); Lymphocytes % 8.7 %; Mean Corpuscular HGB Conc 34.4 g/dL (30-55); Mean Corpuscular Hemoglobin 31.1 pg (27-33); Mean Corpuscular Volume 90.2 fl (85-98); Mean Platelet Volume 10.6 fL (7.4-10.4); Monocytes # 1.1 10^3/uL (0.2-0.9); Monocytes % 6.1 %; Neutrophils # 15.34 10^3/uL (1.8-7.7); Neutrophils % 84.4 %; Nucleated Red Blood Cells % 0 %; Platelet Count 155 10^3/cmm (157-399); Red Blood Count 3.38 10^6/uL (3.85-5.65); Red Cell Distribution Width 12.5 % (12.1-15.1); White Blood Count 18.15 10^3/uL (3.29-11.43)
--- NOTE | 2024-01-13 04:54 | PC.NURSE ---
this nurse noted that the vitals being taken on patient every 15 minutes were not flowing over in [facility]. this nurse had watched the vitals in rooms and they were 90s/50s or 100s/60s and pulse below 120. nurse switched out monitor so that vital signs could be recorded.
[2024-01-13 05:06] LABS: Alanine Aminotransferase 11 U/L (0-33); Albumin Level 2.4 g/dL (3.5-5.2); Alkaline Phosphatase 100 U/L (35-105); Anion Gap 13.3 (5-19); Aspartate Amino Transferase 19 U/L (0-32); Blood Urea Nitrogen 3 mg/dL (6-20); Calcium 7.5 mg/dL (8.5-10.5); Carbon Dioxide 20 mmol/L (22-29); Chloride 104 mmol/L (98-107); Creatinine Clr Calc Pharmacy 311.7287; Globulin 1.7 g/dL (1.3-4.6); Glomerular Filtration Rate 278.2 mL/min (90-130); Glucose 107 mg/dL (65-115); Osmolality Calculated 275 mOsm/kg (285-295); Potassium 3.3 mmol/L (3.5-5.1); Sodium 134 mmol/L (136-145); Total Bilirubin 0.7 mg/dL (0.15-1.2); Total Protein 4.1 g/dL (6.6-8.7)
[2024-01-13] MEDS: dextrose 5%-lactated ringers 1,000 ML 125 ML IV (07:28)
--- NOTE | 2024-01-13 08:36 | ANE.PACU2 ---
Inpatient post-anesthesia follow up: Airway intact: Yes Vital signs: Temperature 99.3 F Pulse Rate 99 Respiratory Rate 18 Blood Pressure 97/63 Pulse Oximetry 99 Oxygen Delivery Me thod Room Air Oxygen Flow Rate Fraction of Inspir ed Oxygen Hydration adequate: Yes Nausea and vomiting: No Pain level: 2 Mental status: Baseline Epidural Start/End: Epidural Start Date: 01/12/24 Epidural Start Time: 16:23 Epidural End Date: 01/12/24 Epidural End Time: 21:47
[2024-01-13] MEDS: benzocaine-menthol 78 gm Canister 1 SPRAY TOPICAL (10:08)
[2024-01-13] MEDS: ibuprofen 800 mg tablet PO ×3 (10:08→22:09)
[2024-01-13] MEDS: prenatal vitamin Capsule 1 CAP PO (10:08)
[2024-01-13] MEDS: docusate sodium 100 mg Capsule PO ×2 (10:08→18:26)
[2024-01-13] MEDS: lanolin oint 7 gm 1 APPLIC TOPICAL (10:09)
--- NOTE | 2024-01-13 13:44 | P.PN_ITS ---
Subjective 2 Subjective: seen this at at bedside pt stable vitals stable she is diuresing now UO 1800 Vitals/I&O/Wt Last Vital Signs Temp 99.3 F 01/13/24 05:11 Pulse 92 01/13/24 08:00 Resp 16 01/13/24 08:00 BP 98/62 01/13/24 08:00 Pulse Ox 99 01/12/24 22:24 O2 Del Method Room Air 01/12/24 04:19 01/12/24 01/13/24 01/13/24 22:59 06:59 14:59 Intake Total 3416.750 / 3418.750 0 / 3418.750 983.333 / 983.333 Output Total 250 / 250 400 / 650 1400 / 1400 Balance 3166.750 / 3168.750 -400 / 2768.750 -416.667 / -416.667 Weight last 48 hrs Weight 67.132 kg Physical Exam 2 Narrative: Accompanied by her and attending provider at bedside. Const: COMMON NORMALS: patient oriented x3 and alert GENERAL APPEARANCE: c ooperative ORIENTATION/CONSCIOUSNESS: Yes awake HENMT: COMMON NORMALS: oropharynx normal Neck/C-Spine: COMMON NORMALS: no JVD Resp: COMMON NORMALS: normal respiratory effort and clear to auscultation bilaterally AUSCULTATION: clear to auscultation bilaterally Cardio: COMMON NORMALS: no JVD, regular rhythm, S1 normal heart sound present, S2 normal heart sound present and No murmurs present (Cardio) RHYTHM: regular rhythm HEART SOUNDS: S1 normal heart sound present and S2 normal heart sound present GI: COMMON NORMALS: Normal to inspection, nondistended, normoactive bowel sounds present Extremity: COMMON NORMALS: no joint enlargement and no pedal edema Neuro: COMMON NORMALS: patient oriented x3 and moves all extremities S ENSORIUM/ORIENTATION: Yes alert Skin: COMMON NORMALS: no rashes or lesions noted GENERAL SKIN EXAM: no rashes or lesions noted Urinary Catheter Management: Luu: Cath Placed During This Visit: yes, but has since been removed by the nurse Reason for Continuing Indwelling Catheter: Decision to DC Catheter Urinary Catheter Date of Insertion: 01/12/24 Urinary Catheter Time of Insertion: 17:05 Date Urinary Catheter Removed: 01/12/24 Time Urinary Catheter Discontinued: 18:50 Data 01/13/24 03:30 01/13/24 03:30 A&P Assessment and plan (1) Hypotension: Hypotensive at the end of delivery, blood pressure down as low as 70/30, although so far has responded to resuscitation. Reviewed vitals, CBC, CMP, baseline troponin, EKG, FP/OB note, discussed with attending provider. Initially intention to move to intensive care unit, however, as so far she is doing better on discussion with her attending and her and her at bedside for now transfer request deferred but discussed we are available with low threshold to transfer in case of any further deterioration or concern. Possibly multifactorial hypotension combination of some hypovolemic shock after vomiting, limited oral intake, acute blood loss EBL about 400 after delivery and episiotomy, possibly contribution of medication, possibly epidural, although was not hypotensive initially, did receive fentanyl but it was earlier as well. Other possibilities of hypotension considered, she is not in respiratory distress, no chest pain or pressure, amniotic fluid embolism considered, possibly less likely, however, monitor condition, supportive management in case needed. DIC profile has been requested. Other considerations, troponin EKG series were requested. Due to misoprostol, but again no chest pain or pressure, EKG on my interpretation was sinus tachycardia, nonspecific T wave abnormality, no obvious signs of [place]. Additionally per discussion with attending placenta was examined as well, no signs to suggest retained products, other considerations, uterine rupture, less likely at current time. D-dimer is noted abnormal 12.85, agree with CT angiogram chest to assess for possibility of VTE, will also request for lower extremity duplex. Reassess kidney function risk of kidney injury. May be at risk of injury from transient hypotension. Consideration given to possibility of infection/septic shock as well, as per discussion considered less likely at this time, do not have suggestive by presentation and symptoms. Likelihood of septic shock at this time low, but will pressure for additional assessment and empiric treatment. Did have vomiting earlier today around the time of delivery follow-up chest CT for any signs of aspiration pneumonitis/pneumonia although respiratory condition, lung exam oxygenation not suggestive. Will obtain acute abdominal series. UA. (2) Vacuum-assisted vaginal delivery: Plan History of migraine headaches Todays plan 3 - COntinue to monitor vitals - may add IV fluids if starts to get hypotensive again - monitor hemoglobin q12H - if stable in next 24 hours. pt may dc from medical standpoint - discharge deferred to OBGYN team - medicine will continue to follow Attestations 2 Medical Necessity Statement*: addtional 24 hour required for inpatient monitoring of vitals Diagnoses Hypotension I95.9 Vacuum-assisted vaginal delivery Z37.9
--- NOTE | 2024-01-13 15:46 | P.PN_ITS ---
Subjective 2 Subjective: The patient is doing very well at this point. She is having no further headache or dizziness. She is ambulating, voiding, passing gas and tolerating food by mouth. Her pain is well-controlled. Her bleeding is decreasing well. Vitals/I&O/Wt Last Vital Signs Temp 99.3 F 01/13/24 05:11 Pulse 92 01/13/24 08:00 Resp 16 01/13/24 08:00 BP 98/62 01/13/24 08:00 Pulse Ox 99 01/12/24 22:24 O2 Del Method Room Air 01/12/24 04:19 01/13/24 01/13/24 01/13/24 06:59 14:59 22:59 Intake Total 0 / 3418.750 983.333 / 983.333 Output Total 400 / 650 1400 / 1400 Balance -400 / 2768.750 -416.667 / -416.667 Weight last 48 hrs Weight 148 lb Physical Exam 2 Narrative: General: Alert and oriented x3 Cardiac: Regular rate and rhythm without murmurs Lungs: Clear to auscultation bilaterally without wheezes, crackles or rhonchi Abdomen: Soft, mild to moderate tenderness over uterus. The uterus is firm and 2 cm below the umbilicus. Extremities: Trace edema in the bilateral lower extremities Urinary Catheter Management: Luu: Cath Placed During This Visit: yes, but has since been removed by the nurse Reason for Continuing Indwelling Catheter: Decision to DC Catheter Urinary Catheter Date of Insertion: 01/12/24 Urinary Catheter Time of Insertion: 17:05 Date Urinary Catheter Removed: 01/12/24 Time Urinary Catheter Discontinued: 18:50 Data 01/13/24 03:30 01/13/24 03:30 A&P Assessment and plan (1) Vacuum-assisted vaginal delivery: The patient is doing very well at this time after having a vacuum-assisted vaginal delivery. She had a prolonged hypotensive episode afterwards and is doing well at this point. She is having no further hypotension. Her venous ultrasound and CT did not show signs of blood clot. Her blood work is looking good overall other than an elevated D-dimer. Her troponin was mildly elevated likely related to a stress response from the hypertension. Her potassium is mildly low and we will replace by mouth. Will plan to keep her overnight and see how she does tomorrow. If she is doing well at that time, we may be able to discharge home at that point. The underlying cause of the hypotensive episode is not entirely clear, but could be related to having generally lower blood pressure followed by moderate blood loss and an epidural. all questions were answered and the patient is in agreement with current plan of care. (2) Hypotension: Attestations 2 Medical Necessity Statement*: The patient will be here for greater than 2 midnights due to the above issues and routine management. Coding Level of Care Code Acute Code for Chg Fwd Diagnoses Vacuum-assisted vaginal delivery Z37.9 Hypotension I95.9
[2024-01-13] MEDS: potassium chloride ER 20 mEq Tablet PO (16:48)
[2024-01-13] MEDS: HYDROcodone-acetaminophen 5-325 mg Tablet PO (18:26)
--- NOTE | 2024-01-13 22:19 | USCV_ITS ---
Adrianne Hadley Age: 23 Gender: F : 2000 Exam Date: 01/13/2024 00:27 Ordering Phys: Wilman Delgado MD Technologist: SERGIO Exam Location: [facility] [place] Indication: elevated d-dimer. No LE edema / erythema. No LE pain. No history of DVT HISTORY: elevated d-dimer. No LE edema / erythema. No LE pain. No history of DVT PROCEDURES: Venous duplex imaging was performed in bilateral lower extremities. The following venous structures were evaluated: common femoral vein, profunda vein, proximal portion of the greater saphenous vein, superficial femoral vein, and the popliteal vein. In addition, the posterior tibial and peroneal veins were evaluated. FINDINGS: Normal 2-D Doppler and augmentation and compressibility throughout the lower extremity venous structures. Additional imaging through the proximal calf veins also reveals no thrombus. Limited evaluation of the greater saphenous vein is patent with no thrombus. CONCLUSIONS No DVT bilateral lower extremities. Dr. Araceli Carrillo DO (Electronically Signed) Final Date: 13 January 2024 07:41 S
[2024-01-14 00:30] VITALS: BP 87/44; PULSE 86; RESP 16
[2024-01-14 04:30] VITALS: BP 94/55; PULSE 86; RESP 16; TEMP 36.5; O2SAT 97
[2024-01-14 04:58] LABS: Basophils % 0.2 %; Eosinophils # 0.1 10^3/uL (0.0-0.8); Eosinophils % 0.8 %; Hematocrit 28.4 % (36-47); Lymphocytes # 1.9 10^3/uL (0.8-4.8); Lymphocytes % 18.2 %; Mean Corpuscular HGB Conc 33.5 g/dL (30-55); Mean Corpuscular Hemoglobin 30.7 pg (27-33); Mean Corpuscular Volume 91.9 fl (85-98); Mean Platelet Volume 10.6 fL (7.4-10.4); Monocytes # 0.8 10^3/uL (0.2-0.9); Monocytes % 7.7 %; Neutrophils # 7.34 10^3/uL (1.8-7.7); Neutrophils % 71.8 %; Nucleated Red Blood Cells % 0 %; Platelet Count 138 10^3/cmm (157-399); Red Blood Count 3.09 10^6/uL (3.85-5.65); Red Cell Distribution Width 13.2 % (12.1-15.1); White Blood Count 10.22 10^3/uL (3.29-11.43)
[2024-01-14 05:01] LABS: Alanine Aminotransferase 11 U/L (0-33); Albumin Level 2.5 g/dL (3.5-5.2); Alkaline Phosphatase 84 U/L (35-105); Anion Gap 10.5 (5-19); Aspartate Amino Transferase 15 U/L (0-32); Blood Urea Nitrogen 5 mg/dL (6-20); Calcium 7.6 mg/dL (8.5-10.5); Carbon Dioxide 23 mmol/L (22-29); Chloride 107 mmol/L (98-107); Creatinine Clr Calc Pharmacy 311.7287; Globulin 1.6 g/dL (1.3-4.6); Glomerular Filtration Rate 278.2 mL/min (90-130); Glucose 80 mg/dL (65-115); Osmolality Calculated 280 mOsm/kg (285-295); Potassium 3.5 mmol/L (3.5-5.1); Sodium 137 mmol/L (136-145); Total Bilirubin 0.2 mg/dL (0.15-1.2); Total Protein 4.1 g/dL (6.6-8.7)
--- NOTE | 2024-01-14 09:58 | PM.DCS ---
Discharge Providers Date of Admission: 01/12/24 04:17 Date of Discharge: January 14, 2024 Attending Provider at Admission: Dusty Disla MD Attending Provider at Discharge: Dusty Disla MD Primary Care Provider: Dusty Disla MD Diagnoses at Discharge Discharge Diagnosis (1) Vacuum-assisted vaginal delivery: Status: Acute (2) Hypotension: Status: Acute Other Information Additional DC diagnoses/information: 1. Intrauterine status post vacuum-assisted vaginal delivery at 40.5 weeks gestation 2. History of migraines 3. Prolonged hypotensive episode after delivery Reason for Visit Reason for Visit: Possible ROM Brief History: The patient presented to labor and delivery triage due to spontaneous rupture membranes. The patient woke up approximately 3 AM on 01/12/2024 and noticed a large gush of fluid when going to the bathroom. The fluid continued to come out and so she presented to triage. She was noted to be grossly ruptured and had a positive nitrazine test. The patient has been ramu more over the prior few days. Hospital Course Hospital Course The patient made good change and delivered her at 1926 on 01/12/2024. She had complication of a prolonged hypotensive episode after delivery. Workup was negative for a pulmonary embolism as a cause. She did not meet criteria for an amniotic fluid embolism. Her epidural has been working well without causing hypotension, but it is suspected that the combination of having epidural along with blood loss related to a vaginal tear related to the vacuum-assisted delivery likely led to her episode. Please see Labor and Delivery note for full details. At this point the patient is doing well without signs of complications. She is ambulating, voiding, passing gas and tolerating food by mouth. She is not having any dizziness. Her hemoglobin did drop from 15.4 predelivery to 9.5. She will take iron by mouth twice a day. She is to push fluids. Orthostatic precautions were discussed. We will plan to follow-up in clinic early next week to be sure that she is continuing to do well. At this point the patient is doing well and she and her are in agreement with discharge home at this time. If she has any concerns she is to let me know right away. Physical Exam Narrative: General: Alert and oriented x3 Cardiac: Regular rate and rhythm without murmurs Lungs: Clear to auscultation bilaterally without wheezes, crackles or rhonchi Abdomen: Soft, mild to moderate tenderness over uterus. The uterus is firm and 2 cm below the umbilicus. Extremities: Trace edema in the bilateral lower extremities Urinary Catheter Management: Luu: Cath Placed During This Visit: yes, but has since been removed by the nurse Reason for Continuing Indwelling Catheter: Decision to DC Catheter Urinary Catheter Date of Insertion: 01/12/24 Urinary Catheter Time of Insertion: 17:05 Date Urinary Catheter Removed: 01/12/24 Time Urinary Catheter Discontinued: 18:50 Discharge Data Studies Completed and Pending Completed Studies During Hospitalization Category Date Time Status CT angio chest PE protcl [id number] Stat Cat Scan 01/12/24 22:10 Completed XR abdomen 1V* [id number] Routine Exams 01/12/24 23:47 [place] [id number] Routine Ultrasound 01/13/24 22:19 Completed Pending at discharge Category Date Time Status Complete Blood Count w/Auto AM LABS Lab 01/15/24 04:00 Ordered Comprehensive Metabolic Panel AM LABS Lab 01/15/24 04:00 Ordered Fibrinogen Degradation Product Routine Lab 01/12/24 23:51 Received UA w/Reflex to Microscope [Urinalysis] Routine Lab 01/12/24 22:40 Uncollected Radiology Impressions Chest CTA 01/12/24 22:10 IMPRESSION: Negative for pulmonary embolus. Abdomen X-Ray 01/12/24 23:47 IMPRESSION: 1. Negative for bowel dilation to indicate obstruction. 2. Contrast in the renal collecting systems, ureters and urinary bladder. Laboratory Results WBC 10.22 10^3/uL (3.29-11.43) 01/14/24 04:37 Corrected WBC Cancelled 01/13/24 12:00 RBC 3.09 10^6/uL (3.85-5.65) L 01/14/24 04:37 Hgb 9.50 g/dL (11.27-16.99) L 01/14/24 04:37 Hct 28.4 % (36-47) L 01/14/24 04:37 MCV 91.9 fl (85-98) 01/14/24 04:37 MCH 30.7 pg (27-33) 01/14/24 04:37 MCHC 33.5 g/dL (30-55) 01/14/24 04:37 RDW 13.2 % (12.1-15.1) 01/14/24 04:37 Plt Count 138 10^3/cmm (157-399) L 01/14/24 04:37 MPV 10.6 fL (7.4-10.4) H 01/14/24 04:37 Neut % (Auto) 71.8 % 01/14/24 04:37 Lymph % (Auto) 18.2 % 01/14/24 04:37 [place] % (Auto) 7.7 % 01/14/24 04:37 Eos % (Auto) 0.8 % 01/14/24 04:37 Baso % (Auto) 0.2 % 01/14/24 04:37 Neut # (Auto) 7.34 10^3/uL (1.8-7.7) 01/14/24 04:37 Lymph # (Auto) 1.9 10^3/uL (0.8-4.8) 01/14/24 04:37 [place] # (Auto) 0.8 10^3/uL (0.2-0.9) 01/14/24 04:37 Eos # (Auto) 0.1 10^3/uL (0.0-0.8) 01/14/24 04:37 Baso # (Auto) 0.0 10^3/uL (0.0-0.1) 01/14/24 04:37 Nucleated RBC % (auto) 0 % 01/14/24 04:37 Nucleated RBCs # 0.0 /100WBC 01/14/24 04:37 PT 14.70 SECONDS (12.1-14.9) 01/12/24 23:30 INR 1.11 (0.8-1.2) 01/12/24 23:30 APTT 29.7 SECONDS (23.9-36.7) 01/12/24 23:30 Fibrinogen 343 mg/dL (174-498) 01/12/24 23:30 D-Dimer >= 20.00 ug/mLFEU (0-0.59) H 01/12/24 23:30 Sodium 137 mmol/L (136-145) 01/14/24 04:37 Potassium 3.5 mmol/L (3.5-5.1) 01/14/24 04:37 Chloride 107 mmol/L (98-107) 01/14/24 04:37 Carbon Dioxide 23 mmol/L (22-29) 01/14/24 04:37 Anion Gap 10.5 (5-19) 01/14/24 04:37 BUN 5 mg/dL (6-20) L 01/14/24 04:37 Creatinine 0.3 mg/dL (0.5-0.9) L 01/14/24 04:37 GFR Calculation 278.2 mL/min (90-130) H 01/14/24 04:37 Glucose 80 mg/dL (65-115) 01/14/24 04:37 POC Glucose 78 mg/dL (70-110) 01/12/24 20:40 Calculated Osmolality 280 mOsm/kg (285-295) L 01/14/24 04:37 Calcium 7.6 mg/dL (8.5-10.5) L 01/14/24 04:37 Total Bilirubin 0.2 mg/dL (0.15-1.2) 01/14/24 04:37 AST 15 U/L (0-32) 01/14/24 04:37 ALT 11 U/L (0-33) 01/14/24 04:37 Alkaline Phosphatase 84 U/L (35-105) 01/14/24 04:37 Troponin T Baseline 12 ng/L (0-10) H 01/12/24 21:02 Troponin T 120 Minute 25.10 ng/L (0-10) H 01/12/24 23:30 Delta Troponin T 13.10 ABS# (0-10) H* 01/12/24 23:30 Troponin T Hi Sens 6Hr 15.70 ng/L (0-10) H 01/13/24 03:30 Troponin T Hi Sens 6Hr Delta 3.70 ng/L (0-12) 01/13/24 03:30 Total Protein 4.1 g/dL (6.6-8.7) L 01/14/24 04:37 Albumin 2.5 g/dL (3.5-5.2) L 01/14/24 04:37 Globulin 1.6 g/dL (1.3-4.6) 01/14/24 04:37 Fluid pH (paper) Positive H 01/12/24 03:59 Blood Type B Positive 01/12/24 05:16 Rho(D) Type Rh positive 02/29/24 05:16 Antibody Screen Negative 01/12/24 05:16 Vitals Last Vital Signs Temp 97.7 F 01/14/24 04:30 Pulse 86 01/14/24 04:30 Resp 16 01/14/24 04:30 BP 94/55 01/14/24 04:30 Pulse Ox 97 01/14/24 04:30 O2 Del Method Room Air 01/14/24 04:30 Discharge Plan Discharge Patient Disposition: Home Condition: Good Prescriptions: New hydrocodone-acetaminophen 5-325 mg Tablet 1 tab PO Q6H PRN (Reason: Moderate To Severe Pain) Qty: 15 0RF ibuprofen 800 mg Tablet 800 mg PO TID Qty: 60 0RF ferrous sulfate 325 mg (65 mg iron) Tablet,Delayed Release (Dr/Ec) 325 mg PO BIDWM Qty: 30 0RF Continued PNV cmb#95-ferrous fumarate-FA [ Multivitamins] 28 mg iron- 800 mcg Tablet 1 tab PO QAM Discharge Orders: Discharge Order (Routine); Ordered 01/14/24 Ordered By: Dusty Disla Referrals: Dusty Disla MD [Primary Care Provider] - 4-7 days Discharge Diet: Regular Discharge Activity: Increase activity as tolerated Patient Instructions: Opioid Safety Activity Restrictions/Additional Instructions: If you have any concern for increasing bleeding, chest pains or dizziness, please seek immediate medical attention. Nothing per vagina for 6 weeks. I would recommend showers instead of baths for the first 6 weeks. Discharge Attestations Time Spent in Discharge Care*: greater than 30 min Quality Metrics Clinical Quality Measures [ No reported AMI, CVA or VTE this stay] Coding Level of Care Code Acute Code for Chg Fwd Diagnoses Vacuum-assisted vaginal delivery Z37.9 Hypotension I95.9
[2024-01-14] MEDS: ibuprofen 800 mg tablet PO (10:58)
[2024-01-14] MEDS: docusate sodium 100 mg Capsule PO (10:58)
[2024-01-14] MEDS: prenatal vitamin Capsule 1 CAP PO (10:58)
[2024-01-14 11:41] VITALS: BP 97/63; PULSE 82; RESP 16; TEMP 36.7
[2024-01-14 12:46] VITALS: BP 97/63; PULSE 82; RESP 16; TEMP 36.7
[2024-01-19 00:04] LABS: Fibrinogen Degradation Product 40 mcg/mL (LESS THAN 5)
== END 2024-01-14 12:40 | disposition home or self-care (01) | DRG 805 ==
LOC: OPOB 04:19 → OBGYN 04:19
PROVIDERS: Internal Medicine; Admitting Provider Family Medicine; PCP Family Medicine; Visit Provider Family Medicine
DX: O48.0 Post-term pregnancy (principal); R57.1 Hypovolemic shock; Z37.0 Single live birth; D62 Acute posthemorrhagic anemia; O76 Abnormality in fetal heart rate and rhythm complicating labor and delivery; O69.81X0 Labor and delivery complicated by cord around neck, without compression, not applicable or unspecified; O70.1 Second degree perineal laceration during delivery; O90.89 Other complications of the puerperium, not elsewhere classified; I95.9 Hypotension, unspecified; R00.0 Tachycardia, unspecified; R11.10 Vomiting, unspecified; Z3A.40 40 weeks gestation of pregnancy
CPT/HCPCS: 36415; 36416; 51702; 59025; 71275; 74018; 80053; 82962; 83986; 84484; 85025; 85362; 85378; 85384; 85610; 85730; 86850; 86900; 93005; 93970; 96374; 96376; 99211; J2405; J2590; J2795; J3010; J7120; J7121; Q9967

== ENCOUNTER → 2024-02-21 16:05 | Outpatient (BNVA) | payer OTHER, SELFPAY | PROVIDERS: PCP Family Medicine; Visit Provider Family Medicine | DX: Z39.2 Encounter for routine postpartum follow-up (principal) | CPT/HCPCS: 87624 ==

== ENCOUNTER → 2024-09-06 14:39 | Outpatient (BNVA) | payer OTHER, SELFPAY | PROVIDERS: PCP Family Medicine; Visit Provider Nurse Practitioner Women's Health | DX: Z32.01 Encounter for pregnancy test, result positive (principal); N92.6 Irregular menstruation, unspecified | CPT/HCPCS: 81025; 84439; 84443; 84702; 85025 ==

== ENCOUNTER → 2024-09-19 13:32 | Outpatient (BNVA) | payer OTHER, SELFPAY | PROVIDERS: PCP Family Medicine; Visit Provider Nurse Practitioner Women's Health | DX: Z36.87 Encounter for antenatal screening for uncertain dates (principal); Z3A.01 Less than 8 weeks gestation of pregnancy | CPT/HCPCS: 76801 ==

== ENCOUNTER → 2024-10-09 17:04 | Outpatient (BNVA) | payer OTHER, SELFPAY | PROVIDERS: PCP Family Medicine; Visit Provider Nurse Practitioner Women's Health | DX: Z34.90 Encounter for supervision of normal pregnancy, unspecified, unspecified trimester (principal); G43.109 Migraine with aura, not intractable, without status migrainosus; O09.899 Supervision of other high risk pregnancies, unspecified trimester | CPT/HCPCS: 80307; 84315; 85025; 86592; 86762; 86803; 86850; 86900; 87086; 87340; 87806 ==

== ENCOUNTER → 2024-10-25 14:47 | Outpatient (BNVA) | payer OTHER, SELFPAY | PROVIDERS: PCP Family Medicine; Visit Provider Obstetrics & Gynecology | DX: O09.91 Supervision of high risk pregnancy, unspecified, first trimester (principal); Z3A.12 12 weeks gestation of pregnancy | CPT/HCPCS: 84315; 87491; 87591; 87661 ==

== ENCOUNTER 2025-02-06 19:28 | Outpatient (CLI) | payer OTHER, SELFPAY ==
[2025-02-06 19:35] VITALS: BMI 30.2
[2025-02-06 19:58] VITALS: BP 105/58; PULSE 98
[2025-02-06 20:13] VITALS: BP 104/60; PULSE 96
[2025-02-06 20:23] VITALS: BP 104/60; PULSE 96; RESP 16; O2SAT 100
[2025-02-06] MEDS: acetaminophen 500 mg Tablet 1000 MG PO (20:23)
== END 2025-02-06 20:23 | disposition home or self-care (01) ==
LOC: OPOB 19:31 → OBGYN 19:32
PROVIDERS: PCP Family Medicine; Visit Provider Family Medicine
DX: O26.899 Other specified pregnancy related conditions, unspecified trimester (principal); R10.2 Pelvic and perineal pain; Z3A.00 Weeks of gestation of pregnancy not specified
CPT/HCPCS: 99211; J9999

== ENCOUNTER 2025-04-21 00:05 | Outpatient (CLI) | payer OTHER, MEDICAID, SELFPAY ==
[2025-04-21 00:18] VITALS: BP 112/68; PULSE 97
[2025-04-21 00:20] VITALS: BMI 30.9
[2025-04-21 00:33] VITALS: BP 114/69; PULSE 91
[2025-04-21 00:48] VITALS: BP 110/67; PULSE 94
[2025-04-21 01:03] VITALS: BP 114/65; PULSE 91
[2025-04-21 01:07] VITALS: BP 114/65; PULSE 91; RESP 16; TEMP 35.9; O2SAT 98
== END 2025-04-21 01:10 | disposition home or self-care (01) ==
LOC: OPOB 00:12 → OBGYN 00:13
PROVIDERS: PCP Family Medicine; Visit Provider Family Medicine
DX: O36.8190 Decreased fetal movements, unspecified trimester, not applicable or unspecified (principal); Z3A.00 Weeks of gestation of pregnancy not specified
CPT/HCPCS: 59025; 99211

== ENCOUNTER 2025-04-28 01:30 | Outpatient (CLI) | payer MEDICAID, SELFPAY ==
[2025-04-28 01:44] VITALS: BP 111/69; PULSE 90
[2025-04-28 01:49] VITALS: BMI 30.7
[2025-04-28 02:09] LABS: Actim Prom Negative
[2025-04-28 02:20] VITALS: BP 111/90; PULSE 90; RESP 16; TEMP 36.7; O2SAT 98
== END 2025-04-28 02:23 | disposition home or self-care (01) ==
LOC: OPOB 01:34 → OBGYN 01:34
PROVIDERS: PCP Family Medicine; Visit Provider Family Medicine
DX: O26.899 Other specified pregnancy related conditions, unspecified trimester (principal); Z3A.00 Weeks of gestation of pregnancy not specified; N89.8 Other specified noninflammatory disorders of vagina; R10.9 Unspecified abdominal pain
CPT/HCPCS: 59025; 84112; 99211

== ENCOUNTER 2025-05-01 02:40 | Inpatient (IN) | payer MEDICAID, SELFPAY ==
[2025-05-01] VITALS (91 sets, daily range): BP systolic 85–185; BP diastolic 44–104; PULSE 65–157; RESP 16–17; TEMP 36.5–37.2; O2SAT 89–100; BMI 30.9
[2025-05-01 02:28] LABS: Basophils % 0.1 %; Eosinophils # 0.1 10^3/uL (0.0-0.8); Eosinophils % 0.4 %; Hematocrit 38.3 % (36-47); Lymphocytes # 2.2 10^3/uL (0.8-4.8); Lymphocytes % 15.8 %; Mean Corpuscular HGB Conc 32.1 g/dL (30-55); Mean Corpuscular Hemoglobin 25.4 pg (27-33); Mean Corpuscular Volume 79.1 fl (85-98); Mean Platelet Volume 10.2 fL (7.4-10.4); Monocytes % 6.9 %; Neutrophils # 10.62 10^3/uL (1.8-7.7); Neutrophils % 75.7 %; Nucleated Red Blood Cells % 0 %; Platelet Count 214 10^3/cmm (157-399); Red Blood Count 4.84 10^6/uL (3.85-5.65); Red Cell Distribution Width 13.6 % (12.1-15.1); White Blood Count 14.03 10^3/uL (3.29-11.43)
[2025-05-01] MEDS: lactated ringers 1,000 ML 999 ML IV (02:38)
[2025-05-01] MEDS: dextrose 5%-lactated ringers 1,000 ML 125 ML IV ×2 (05:06→13:01)
[2025-05-01] MEDS: ondansetron 2 mg/ML SDV 2 mL 4 MG IVP (05:56)
--- NOTE | 2025-05-01 08:15 | PM.OPHPUD ---
Labor & Delivery H&P Update Date of Procedure: May 01, 2025 Date H&P Performed: 04/30/25 Changes to previous documentation: Cervical dilation to 4 cm upon admission to the hospital Admission Diagnosis: 25-year-old 2 para 1-0-0-1 at 39 weeks estimated gestational age in active labor Other information: The patient is a 25-year-old 39-week patient who presents to the hospital in active labor. She seen in my office yesterday and was noted to be 2 cm dilated. When she arrived to the hospital last night she was 4 cm dilated and ramu consistently every 2 to 3 minutes. Her membranes were intact. The patient had an unremarkable . She received consistent care. There were no concerns. Her her blood type was B+ her antibody screen was negative she passed her glucose screen. She is rubella immune. She is GBS negative. The remainder of her infectious disease profile is within normal limits. Related Problem List Diagnoses (1) 39 weeks gestation of : A&P Assessment and plan (1) 39 weeks gestation of : I anticipate routine labor and vaginal delivery. Status: Acute PDMP PDMP Reviewed: Not Reviewed
[2025-05-01] MEDS: ROPivacaine syringe 100 MG/50 ML SYRINGE 10 MG EPIDURAL (08:41)
[2025-05-01] MEDS: lactated ringers 1,000 ML 999 ML (08:51)
--- NOTE | 2025-05-01 09:23 | ANES.PREANE2 ---
Pre-Anesthetic Assessment Height/Weight: Height 4 ft 11 in Weight 153 lb Pulse BP Pulse Ox O2 Del Method 95 116/80 89 L Room Air 05/01/25 08:52 05/01/25 08:29 05/01/25 08:52 05/01/25 00:30 Preop Diagnosis: Emergent Was Beta Johnathan taken within 24 hours: N/A Was Clonidine taken within 24 hours: N/A Social No alcohol and No tobacco Exam alert, oriented x 3, clear to auscultation bilaterally and regular rate & rhythm Airway Submandibular: within normal limits Cervical ROM: within normal limits Mallampati: Class II Dentition: full Anesthetic Plan ASA status: 3E Anesthesia: Regional (specify below) Other: G2, P1 here for IUP Emergent called, patient in the room shortly after arriving Denies any cardiac or pulmonary issues No issues with baby Labs reviewed and acceptable for procedure Plan for using epidural but may need to go all the way off to sleep if it does not set up Medications/Allergies Home Medications ?Medication ?Instructions ?Recorded ?Confirmed ?Last Taken ?Type vit no.95-ferrous 1 tab PO QAM 08/16/23 05/01/25 04/30/25 History fumarate 28 mg-folic acid 800 mcg tablet ( Multivitamins) Allergies Allergy/AdvReac Type Severity Reaction Status Date / Time No Known Allergies Allergy Verified 05/01/25 05:39 Current Medications Generic Name Dose Route Start Last Admin Trade Name Freq PRN Reason Stop Dose Admin Lactated Ringer's 1,000 mls @ 999 mls/hr 05/01/25 02:20 05/01/25 02:38 Lactated Ringers IV 999 mls/hr .Q1H1M PRN Administration See label comments Ropivacaine 100 mg in 50 mls @ 10 mls/hr 05/01/25 02:30 05/01/25 08:41 Naropin Syringe EPIDURAL 10 mls/hr .Q5H JAJA Administration Dextrose/Lactated Ringer's 1,000 mls @ 125 mls/hr 05/01/25 02:30 05/01/25 05:06 Dextrose 5%-Lactated Ringers IV 125 mls/hr .Q8H JAJA Administration Ondansetron HCl 4 mg 05/01/25 02:20 05/01/25 05:56 Ondansetron 2 Mg/Ml Sdv 2 Ml IVP 4 mg Q4H PRN Administration NAUSEA AND VOMITING PFSH Anesthesia Medical History No pertinent past medical history neghx: htn, dm, thyroid, dvt/pe PCP: none Migraine headache w/o aura Surgical History Hx of tonsillectomy End of 6th grade - Adenoids too Family History Mother Family history of thyroid problem Grandmother Heart disease Diabetes Grandfather Diabetes Social History Smoking and tobacco/nicotine status: never used tobacco/nicotine Alcohol intake: current Alcohol intake frequency: holidays/special occasions only Substance/Drug Use: never 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
--- NOTE | 2025-05-01 09:54 | PM.OP ---
Operative Report Date of procedure: May 01, 2025 Pre-op diagnosis: 1. 25-year-old 2 at 39 weeks estimated gestational age 2. Nonreassuring heart tones Post-op diagnosis: Status post stat low-transverse section Procedure done: Low-transverse section Specimens removed/disposition: 1. Male infant with a weight of 3310 g and Apgars of 2 9 and 9 2. Placenta with a three-vessel cord delivered intact Surgeon: Flavio Golden MD Estimated blood loss (mL): 800 Complications: None Procedure: The patient was brought back to the operating room where she was quickly prepped and draped with Betadine. The epidural was dosed up and was found to be adequate. A lower transverse skin incision was then made with a #10 blade. I then dissected down to the underlying subcutaneous tissue until arriving at the prerectal fascia. The fascia was then nicked with the scalpel bilaterally. The fascial incisions were then carried laterally with Antunez scissors. Attention was then turned to the superior aspect of the incision which was grasped with kochers and tented up away from the underlying rectus abdominis muscles. The muscles were then dissected away from the fascia manually, and later with Antunez scissors. Attention was then turned to the inferior aspect of the incision, and the fascia was dissected away from the underlying muscle in similar fashion. The rectus abdominis muscles were then spread manually. The peritoneum was entered manually. Excellent visualization of the uterus was noted. A lower transverse uterine incision was then made with a #10 blade. Upon arriving at the intrauterine cavity, the uterine incision was then extended manually. The was noted to be in vertex position. The baby was impacted on the pubic bone, and the nurse assisted with pressure on the baby's head. The baby was then delivered without difficulty. There was no meconium. There was no nuchal cord. The cord was cut and clamped. The baby was then handed to the waiting nurse. The placenta was removed intact. The uterus was externalized. The intrauterine cavity was cleansed of any remaining debris. The uterus incision was carefully examined for any extensions. There were no extensions noted. The uterine incision was reapproximated in 2 layers. The first layer was performed with 0 Vicryl in a running locked stitch. The second layer was an imbricating stitch also using 0 Vicryl. The uterus was replaced into the abdomen. The peritoneum was then irrigated with warm saline. I reexamined the uterine incision and found it to be hemostatic. The rectus abdominis muscles were then reapproximated using 0 Vicryl in a running stitch. The fascia was then reapproximated using 0 Vicryl in running stitch. The subcutaneous tissue was reapproximated using 4-0 Vicryl in a running stitch. The skin was reapproximated using lucrecia. A sterile dressing was placed. All counts were correct x2. Both the mother and baby were in stable condition.
--- NOTE | 2025-05-01 10:22 | ANE.PACU2 ---
Inpatient post-anesthesia follow up: Airway intact: Yes Vital signs: Temperature 97.7 F Pulse Rate 88 Respiratory Rate 16 Blood Pressure 116/63 Pulse Oximetry 100 Oxygen Delivery Me thod Room Air Oxygen Flow Rate 10 Fraction of Inspir ed Oxygen Hydration adequate: Yes Nausea and vomiting: No Pain level: 2 Mental status: Baseline
[2025-05-01] MEDS: ketorolac 30 mg/mL INJ IVP ×3 (12:13→23:20)
[2025-05-01] MEDS: docusate sodium 100 mg Capsule PO (18:12)
[2025-05-01] MEDS: ferrous sulfate EC 325 mg Tablet PO (18:12)
[2025-05-01] MEDS: ceFAZolin 2,000 mg SDV 2000 MG IVP (18:13)
[2025-05-01 22:20] LABS: Hematocrit 27.3 % (36-47); Mean Corpuscular HGB Conc 32.6 g/dL (30-55); Mean Corpuscular Hemoglobin 25.9 pg (27-33); Mean Corpuscular Volume 79.4 fl (85-98); Platelet Count 175 10^3/cmm (157-399); Red Blood Count 3.44 10^6/uL (3.85-5.65); White Blood Count 15.57 10^3/uL (3.29-11.43)
[2025-05-02] VITALS (10 sets, daily range): BP systolic 76–126; BP diastolic 40–62; PULSE 64–105; RESP 16; TEMP 36.8; O2SAT 97
[2025-05-02] MEDS: docusate sodium 100 mg Capsule PO ×2 (08:57→21:06)
[2025-05-02] MEDS: PRENATAL VIT NO.130/IRON/FOLIC 1 EACH TABLET PO (08:57)
[2025-05-02] MEDS: ferrous sulfate EC 325 mg Tablet PO ×2 (08:58→21:06)
[2025-05-02] MEDS: ibuprofen 800 mg tablet PO ×3 (08:58→21:05)
[2025-05-02 09:42] LABS: Basophils % 0.1 %; Eosinophils % 0.1 %; Hematocrit 24.4 % (36-47); Lymphocytes # 1.4 10^3/uL (0.8-4.8); Lymphocytes % 12.9 %; Mean Corpuscular Hemoglobin 25.7 pg (27-33); Mean Corpuscular Volume 80.5 fl (85-98); Mean Platelet Volume 10.1 fL (7.4-10.4); Monocytes # 0.7 10^3/uL (0.2-0.9); Monocytes % 6.1 %; Neutrophils # 8.73 10^3/uL (1.8-7.7); Nucleated Red Blood Cells % 0 %; Platelet Count 162 10^3/cmm (157-399); Red Blood Count 3.03 10^6/uL (3.85-5.65); Red Cell Distribution Width 14.2 % (12.1-15.1); White Blood Count 10.92 10^3/uL (3.29-11.43)
[2025-05-02] MEDS: lactated ringers 1,000 ML 999 ML IV (09:57)
[2025-05-02] MEDS: HYDROcodone-acetaminophen 5-325 mg Tablet PO ×2 (11:03→21:08)
[2025-05-02 14:40] LABS: Basophils % 0.1 %; Eosinophils % 0.3 %; Hematocrit 25.2 % (36-47); Lymphocytes # 1.9 10^3/uL (0.8-4.8); Lymphocytes % 15.3 %; Mean Corpuscular HGB Conc 31.3 g/dL (30-55); Mean Corpuscular Hemoglobin 25.5 pg (27-33); Mean Corpuscular Volume 81.3 fl (85-98); Mean Platelet Volume 10.5 fL (7.4-10.4); Monocytes # 0.9 10^3/uL (0.2-0.9); Monocytes % 7.1 %; Neutrophils # 9.31 10^3/uL (1.8-7.7); Nucleated Red Blood Cells % 0 %; Platelet Count 160 10^3/cmm (157-399); Red Cell Distribution Width 14.2 % (12.1-15.1); White Blood Count 12.25 10^3/uL (3.29-11.43)
--- NOTE | 2025-05-02 18:07 | P.PN_ITS ---
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 Her urine output has been excellent. Her vitals have been within normal limits. Her hemoglobin dropped from 12.3 presurgical to 8.9 last night at 2200 and then later 7.8 today at 930. Finally we had hemoglobin of 7.9 at 1430 today. She has passed gas. She is tolerating a normal diet. Outside of the drop in her hemoglobin, there have been no other concerns. Labor: Station: +1 Amniotic Membrane Status: Ruptured Monitor Mode: External Contraction Pattern: Regular Vitals/I&O/Wt Last Vital Signs Temp 98.9 F 05/01/25 22:14 Pulse 105 H 05/02/25 16:11 Resp 17 05/01/25 22:14 BP 91/49 05/02/25 16:11 Pulse Ox 97 05/01/25 22:14 O2 Del Method Room Air 05/01/25 22:14 O2 Flow Rate 10 05/01/25 08:31 05/02/25 05/02/25 05/02/25 06:59 14:59 22:59 Output Total 700 / 1750 900 / 900 300 / 1200 Balance -700 / 218.75 -900 / -900 -300 / -1200 Weight last 48 hrs Weight 153 lb Weight 153 lb Physical Exam 2 Narrative: She is in no acute distress Lungs are clear auscultation bilaterally Her heart has a regular rate and rhythm Her fundus is below the umbilicus and firm Her dressing is clean, dry and intact Her extremities have trace edema Urinary Catheter Management: Luu: Cath Placed During This Visit: yes Reason for Continuing Indwelling Catheter: Other Urinary Catheter Date of Insertion: 05/01/25 Urinary Catheter Time of Insertion: 04:42 Data 05/02/25 14:32 A&P Assessment and plan (1) 39 weeks gestation of : The patient will suspend 1 more night in the hospital. We will recheck her hemoglobin in the morning. Dr. Piper has agreed to cover for her tomorrow morning have discussed her case with him. (2) Status post : PDMP PDMP Reviewed: Not Reviewed Attestations 2 Medical Necessity Statement*: I anticipate routine and post care. She will probably spend 1 more night in the hospital. Coding Level of Care Code Acute Code for Chg Fwd Diagnoses 39 weeks gestation of Z3A.39 Status post Z98.891
[2025-05-03 04:11] VITALS: BP 89/52; PULSE 115
[2025-05-03 06:09] LABS: Basophils % 0.2 %; Eosinophils # 0.1 10^3/uL (0.0-0.8); Eosinophils % 0.7 %; Hematocrit 24.1 % (36-47); Lymphocytes # 1.7 10^3/uL (0.8-4.8); Lymphocytes % 16.9 %; Mean Corpuscular Hemoglobin 26.1 pg (27-33); Mean Corpuscular Volume 81.7 fl (85-98); Monocytes # 0.8 10^3/uL (0.2-0.9); Monocytes % 7.7 %; Neutrophils % 72.5 %; Nucleated Red Blood Cells % 0 %; Platelet Count 182 10^3/cmm (157-399); Red Blood Count 2.95 10^6/uL (3.85-5.65); Red Cell Distribution Width 14.5 % (12.1-15.1)
[2025-05-03] MEDS: HYDROcodone-acetaminophen 5-325 mg Tablet PO (07:06)
[2025-05-03] MEDS: ferrous sulfate EC 325 mg Tablet PO (07:06)
--- NOTE | 2025-05-03 08:43 | PM.OBGYDC ---
Discharge Providers DIRECTOR REVENUE Date of Admission: 05/01/25 02:40 Date of Discharge: 05/03/25 Attending Provider at Admission: Flavio Golden MD Attending Provider at Discharge: Jagdeep Henry MD Primary Care Provider: Flavio Golden MD Diagnoses at Discharge Discharge Diagnosis (1) 39 weeks gestation of : Status: Acute (2) Status post : Status: Acute Reason for Visit Reason for Visit: contractions Hospital Course Hospital Course This is a 25-year-old G2, P1 that presented with contractions. The patient had failure to progress and nonreassuring heart tones and underwent urgent . No significant complications during delivery. The patient did have a drop of hemoglobin 12.3-9.7 and has remained stable since yesterday with her most recent hemoglobin at 7.7. Patient denies any dizziness or lightheadedness. Patient vital signs have been stable. Patient has had no other complications. Information Peripartum Data: Infant Delivery Method: Physical Exam Narrative: She is in no acute distress Lungs are clear auscultation bilaterally Her heart has a regular rate and rhythm Her fundus is below the umbilicus and firm Her dressing is clean, dry and intact Her extremities have trace edema Urinary Catheter Management: Luu: Cath Placed During This Visit: yes Reason for Continuing Indwelling Catheter: Other Urinary Catheter Date of Insertion: 05/01/25 Urinary Catheter Time of Insertion: 04:42 History History History 2 Term 1 0 Miscarriages/Ectopic 0 Living Children 1 Past Pregnancies Del. Date GA/Weeks Outcome Route Wt Inf Gender Labor Lgth Comp. Anesthesia Location 01/12/24 40 live - full term Opperative 3.062 kg Male 16 hrs Other [facility] Delivery Date: 01/12/24 Last Updated by: Dusty Disla MD Hypotensive episode after delivery x 1 hr - Being evaluated Discharge Data Studies Completed and Pending Laboratory Results WBC 9.80 10^3/uL (3.29-11.43) 05/03/25 06:02 RBC 2.95 10^6/uL (3.85-5.65) L 05/03/25 06:02 Hgb 7.70 g/dL (11.27-16.99) L 05/03/25 06:02 Hct 24.1 % (36-47) L 05/03/25 06:02 MCV 81.7 fl (85-98) L 05/03/25 06:02 MCH 26.1 pg (27-33) L 05/03/25 06:02 MCHC 32.0 g/dL (30-55) 05/03/25 06:02 RDW 14.5 % (12.1-15.1) 05/03/25 06:02 Plt Count 182 10^3/cmm (157-399) 05/03/25 06:02 MPV 10.0 fL (7.4-10.4) 05/03/25 06:02 Neut % (Auto) 72.5 % 05/03/25 06:02 Lymph % (Auto) 16.9 % 05/03/25 06:02 [place] % (Auto) 7.7 % 05/03/25 06:02 Eos % (Auto) 0.7 % 05/03/25 06:02 Baso % (Auto) 0.2 % 05/03/25 06:02 Neut # (Auto) 7.10 10^3/uL (1.8-7.7) 05/03/25 06:02 Lymph # (Auto) 1.7 10^3/uL (0.8-4.8) 05/03/25 06:02 [place] # (Auto) 0.8 10^3/uL (0.2-0.9) 05/03/25 06:02 Eos # (Auto) 0.1 10^3/uL (0.0-0.8) 05/03/25 06:02 Baso # (Auto) 0.0 10^3/uL (0.0-0.1) 05/03/25 06:02 Nucleated RBC % (auto) 0 % 05/03/25 06:02 Nucleated RBCs # 0.0 /100WBC 05/03/25 06:02 Blood Type B Positive 05/01/25 02:11 Rho(D) Type Rh positive 05/01/25 02:11 Antibody Screen Negative 05/01/25 02:11 Vitals Last Vital Signs Temp 98.2 F 05/02/25 21:24 Pulse 115 H 05/03/25 04:11 Resp 16 05/02/25 21:24 BP 89/52 05/03/25 04:11 Pulse Ox 97 05/02/25 21:24 O2 Del Method Room Air 05/02/25 21:24 O2 Flow Rate 10 05/01/25 08:31 Results Labs OB ([facility]): Obstetrics US 12/14/23 Blood Type B Positive 05/01/25 Antibody Screen Negative 05/01/25 Hct, (36-47) 24.1 % L Today Hgb, (11.27-16.99) 7.70 g/dL L Today Rho(D) Type Rh positive 05/01/25 Plt Count, (157-399) 182 10^3/cmm Today Hep Bs Antigen, (Nonreactive) Non-reactive 10/09/24 Hepatitis C Antibody, (Nonreactive) Non-reactive 10/09/24 Rubella IgG Antibody, (0.0-10.0) 13.3 IU/mL H 10/09/24 RPR, (Nonreactive) Nonreactive 10/09/24 HIV 1&2 Ab & HIV 1 Ag, (Non-Reactiv) Non-reactive 10/09/24 TSH, (0.27-4.20) 0.76 uIU/mL 09/06/24 Free T4, (0.82-1.77) 1.07 ng/dL 09/06/24 C.trachomatis RNA (TMA), (NOT DETECTED) Not detected 08/16/23 N.gonorrhoeae RNA (TMA), (NOT DETECTED) Not detected 08/16/23 T. vaginalis Amp RNA, (NOT DETECTED) Not detected 08/16/23 Chlamydia/GC Comment See note 08/16/23 Gest Glucose Tolerance, (70-139) 122 mg/dL 09/20/23 Ser , Semi-Qnt 53482.00 mIU/mL 09/06/24 HCG, Qual, (Negative) Positive H 09/06/24 Urine Opiates Screen, (Negative) Negative ng/mL 10/09/24 Ur Barbiturates Screen, (Negative) Negative ng/mL 10/09/24 Ur Phencyclidine Scrn, (Negative) Negative ng/mL 10/09/24 Ur Amphetamines Screen, (Negative) Negative ng/mL 10/09/24 U Benzodiazepines Scrn, (Negative) Negative ng/mL 10/09/24 Urine Cocaine Screen, (Negative) Negative ng/mL 10/09/24 U Marijuana (THC) Screen, (Negative) Negative ng/mL 10/09/24 Micro Urine Specimen 10/09/24 Pap Smear Interpret See note 02/21/24 Discharge Plan Discharge Patient Disposition: Home Condition: Stable Prescriptions: New ibuprofen 800 mg Tablet 800 mg PO TID Qty: 45 0RF hydrocodone-acetaminophen 5-325 mg Tablet 1 tab PO Q6H PRN (Reason: Moderate To Severe Pain) Qty: 25 0RF docusate sodium 100 mg Capsule 100 mg PO BID Qty: 14 0RF Continued PNV cmb#95-ferrous fumarate-FA [ Multivitamins] 28 mg iron- 800 mcg Tablet 1 tab PO QAM Discharge Orders: Discharge Order (Routine); Ordered 05/03/25 Ordered By: Sathish Henry Referrals: Flavio Golden MD [Primary Care Provider, [facility]] - 4-7 days Discharge Diet: Usual diet Discharge Activity: Limit activity as instructed Patient Instructions: Depression (DC), Opioid Safety (DC), Preeclampsia and Eclampsia After Delivery (GEN), Hemorrhage (DC), OB Discharge Report, OB Food/Drug Interaction Guide, OB Care at Home, Opioid Safety, OB Vaginal Deliveries, Abnormal Bleeding Discharge Attestations DIRECTOR REVENUE Time Spent in Discharge Care*: less than 30 min Coding Level of Care Code Acute Code for Chg Fwd Diagnoses 39 weeks gestation of Z3A.39 Status post Z98.891
[2025-05-03] MEDS: PRENATAL VIT NO.130/IRON/FOLIC 1 EACH TABLET PO (09:27)
[2025-05-03] MEDS: ibuprofen 800 mg tablet PO (09:28)
[2025-05-03] MEDS: docusate sodium 100 mg Capsule PO (09:28)
[2025-05-03 09:30] VITALS: BP 99/52; PULSE 101
[2025-05-03 09:42] VITALS: BP 99/52; PULSE 101; RESP 15; TEMP 36.6; O2SAT 98
== END 2025-05-03 10:00 | disposition home or self-care (01) | DRG 788 ==
LOC: OPOB 10:22 → OBGYN 10:25
PROVIDERS: Admitting Provider Family Medicine; PCP Family Medicine; Visit Provider Family Medicine
PROC: 10D00Z1 Extraction of Products of Conception, Low, Open Approach (ICD-10-PCS; CPT 59514; principal; 2025-05-01 08:55)
DX: O76 Abnormality in fetal heart rate and rhythm complicating labor and delivery (principal); Z3A.39 39 weeks gestation of pregnancy; Z37.0 Single live birth
CPT/HCPCS: 36415; 51702; 59025; 59409; 85025; 85027; 86850; 86900; 96374; 96376; 99211; J0690; J1885; J2274; J2371; J2405; J2704; J2795; J3490; J7120; J7121; J9999